=== PATIENT | male | born 1945 | race Caucasian/White ===

== ENCOUNTER → 2016-03-22 | Outpatient (CLI) | payer MEDICARE, OTHER ==
--- NOTE | 2016-03-23 08:04 | MRI ---
Study: MRI of the brain. Indication: PARKINSONS DISEASE Technique: Multiplanar, multi sequence MRI of the brain obtained with and without intravenous contrast. Comparison: April 03, 2012. Findings: No MRI evidence of acute ischemia, acute hemorrhage, mass, mass effect, midline shift, or extra-axial fluid collection. No pathologic enhancement. Mild to moderate global symmetric parenchymal volume loss noted and appears stable to the prior examination. No asymmetric volume loss of the basal ganglia or brainstem. Ventricles are normal in configuration without hydrocephalus. Midline structures are intact. Scattered mild paranasal sinus mucosal disease. Mastoid air cells are adequately aerated. Osseous structures and soft tissues demonstrate normal signal characteristics. Impression: 1. No MRI evidence of acute intracranial abnormality. 2. Stable mild to moderate global symmetric parenchymal volume loss. Electronically signed by: Andrés Hobson MD 03/23/2016 08:03
== END ==
LOC: MRI 13:47
DX: G20 Parkinson's disease (principal)

== ENCOUNTER → 2016-05-18 | Outpatient (CLI) | payer OTHER | END | disposition home or self-care (01) | LOC: RESP 14:02 | PROVIDERS: ATTEND Internal Medicine Cardiovascular Disease | DX: I48.0 Paroxysmal atrial fibrillation (principal); R00.1 Bradycardia, unspecified ==

== ENCOUNTER 2016-05-31 13:22 | Emergency (ER) | payer OTHER ==
[2016-05-31] MEDS ORDERED: ASPIRIN (CHEWABLE) 81 MG TAB PO ONE (13:26)
[2016-05-31] MEDS ORDERED: NITROGLYCERIN 0.4 MG 25 EA TAB SL ONE (13:26)
--- NOTE | 2016-05-31 13:31 | ED.PDOC ---
History of Present Illness - General Chief Complaint: Chest Pain/NC Stated Complaint: chest pain Time Seen by Provider: 05/31/16 13:25 Source: patient, RN notes reviewed, Vital Signs reviewed, family Exam Limitations: no limitations - History of Present Illness Initial Comments: Patient reports L sided substernal chest pain for 2 days. Fairly constant. Worsens with deep breath. Reports the pain is sharp but is associated with nausea and diaphoresis. Unsure if he has been SOB as he has just been sitting in his recliner for 2 days. Reports pain is 7/10. Recently saw Histology Manager and is currently on a halter monitor for intermittent a.fib. Timing/Duration: days - 2 Severity/Quality: moderate - 7/10, sharp Location: substernal Chest Pain Radiation: no radiation Activities at Onset: none Prior Chest Pain/Cardiac Workup: cardiac cath - has had one coronary stent placed in the past, echocardiography - Recently @ cardiology office. reports EKG at recent visit was normal. Improving Factors: nothing Worsening Factors: nothing Nitro Today/Relief: no nitro taken today Aspirin Treatment Today: 81 mg x 1 Associated Symptoms: diaphoresis, nausea/vomiting Allergies/Adverse Reactions: Allergies NO KNOWN ALLERGY Allergy (Verified 11/23/13 18:34) Home Medications: Ambulatory Orders Aripiprazole [Abilify] 2 mg PO HS 03/14/12 Levothyroxine Sodium [Synthroid] 0.075 mg PO 0700 03/14/12 Tamsulosin [Flomax] 0.4 mg PO DAILY 03/14/12 Vilazodone HCl [Viibryd] 40 mg PO DAILY 03/14/12 Zolpidem Tartrate [Ambien] 10 mg PO HS PRN 03/14/12 Aspirin [Aspirin EC] 81 mg PO DAILY 11/23/13 Lidocaine 5% Patch [Lidoderm Patch] 1 applic TOP Q12HRS #5 patch 11/23/13 Simvastatin 20 mg PO BEDTIME 11/23/13 Review of Systems - Review of Systems Constitutional: States: diaphoresis, malaise. Denies: chills EENTM: States: no symptoms reported Respiratory: States: no symptoms reported. Denies: cough, short of breath Cardiology: States: see HPI, chest pain. Denies: edema, palpitations, syncope Gastrointestinal/Abdominal: States: nausea, vomiting. Denies: abdominal pain Genitourinary: States: no symptoms reported Musculoskeletal: States: no symptoms reported Skin: States: no symptoms reported Neurological: States: no symptoms reported. Denies: headache Endocrine: States: no symptoms reported Hematologic/Lymphatic: States: no symptoms reported Past Medical History (General) - Patient Medical History Hx Seizures: No Hx Stroke: No Hx Dementia: No Hx Asthma: No Hx of COPD: No Hx Cardiac Disorders: Yes - dyslipidemia, left vent blockage 15% Hx Congestive Heart Failure: No Hx Pacemaker: No Hx Hypertension: No Hx Thyroid Disease: Yes Hx Diabetes: No Hx Gastroesophageal Reflux: No Hx Renal Disease: No Hx Cancer: No Hx of HIV: No Hx Hepatitis C: No Hx MRSA: No - Vaccination History Hx Tetanus, Diphtheria Vaccination: Yes Hx Influenza Vaccination: Yes Hx Pneumococcal Vaccination: Yes - 2012 - Social History Hx Tobacco Use: No Hx Chewing Tobacco Use: No Hx Alcohol Use: Yes - vodka and OJ 3 x week Hx Substance Use: No Hx Substance Use Treatment: No Hx Depression: Yes Hx Physical Abuse: No Hx Emotional Abuse: No Hx Suspected Abuse: No - Female History Patient : No Family Medical History - Family History Mother Family History: Unknown Physical Exam - Physical Exam General Appearance: Alert, Comfortable, No apparent distress, Well Developed, Well Groomed, Well Hydrated, Well Nourished Neck: non-tender, full range of motion, supple, normal inspection Respiratory: chest non-tender, lungs clear, no respiratory distress, no accessory muscle use, decreased breath sounds - bilateral bases Cardiovascular/Chest: normal peripheral pulses, no edema, no JVD, no murmur, irregularly irregular Peripheral Pulses: radial,right: 2+, radial,left: 2+, posterior tibialis,right: 2+, posterior tibialis,left: 2+ Gastrointestinal/Abdominal: normal bowel sounds, non tender, soft, no organomegaly, no pulsatile mass Extremity: normal range of motion, non-tender, normal inspection, no pedal edema Neurologic: no motor/sensory deficits, alert, normal mood/affect, oriented x 3 Skin Exam: normal color, warm/dry Comments: Vital Signs - 24 hr 05/31/16 13:30 Temperature 97 F L Pulse Rate [ 101 H Right Radial] Respiratory 18 Rate Blood Pressure 145/67 [Left Arm] O2 Sat by Pulse 97 Oximetry Progress - Progress Progress: 05/31/16 13:37 Gave 324mg Aspirin and SLNTG X 1. BP dropped to 94/66 and had no change in his pain. Will try a small dose of Morphine. 05/31/16 14:57 Patient with mildly elevated Troponin of 0.07, elevated D-Dimer and CTA of chest which suggests mediatinitis/pericarditis, will transfer to [facility] in [place] as this is where his Histology Manager, Dr. Ahn practices. 05/31/16 15:45 Waiting on bed @ [facility] - Dr. Ahn wants admit to hospitalist and will consult. Will draw another set of cardiac enzymes while we are waiting. 05/31/16 18:[address] Araiza who accepted patient in transfer. - Results/Orders Results/Orders: Laboratory Tests 05/31/16 13:30 WBC 7.9 RBC 4.82 Hgb 14.7 Hct 43.9 MCV 91.0 MCH 30.5 MCHC 33.5 RDW 14.7 H Plt Count 160 MPV 9.4 Absolute Neuts (auto) 5.30 Absolute Lymphs (auto) 0.90 L Absolute Monos (auto) 1.60 H Absolute Eos (auto) 0.00 Absolute Basos (auto) 0.00 Neutrophils % 67.1 Lymphocytes % 12.0 L Monocytes % 19.9 H Eosinophils % 0.5 L Basophils % 0.5 D-Dimer, Quantitative 544 H* Sodium 138 Potassium 3.4 L Chloride 103 Carbon Dioxide 26 Anion Gap 12.4 BUN 16 Creatinine 1.26 BUN/Creatinine Ratio 12.7 Random Glucose 119 H Serum Osmolality 278.0 Calcium 8.9 Total Bilirubin 3.7 H* AST 20 ALT < 8 L Alkaline Phosphatase 52 Creatine Kinase 28 L CK-MB (CK-2) 0.8 CK-MB (CK-2) % Not Reportable Troponin I 0.07 H* B-Natriuretic Peptide 194.0 H Serum Total Protein 7.0 Albumin 3.8 Globulin 3.2 Albumin/Globulin Ratio 1.2 - EKG/XRAY/CT EKG: Atrial, Fibrillation, no ST T wave changes, Changed from - 2013 XRAY: chest - Pulm congestion, pos. L effusion CT Ordered: Yes - Chest: suggests Mediastinitis/Pericarditis Departure - Departure Clinical Impression: Elevated troponin level Chest pain Qualifiers: Chest pain type: chest pain on breathing Qualifier Code: (R07.1) Chest pain on breathing Atrial fibrillation Qualifiers: Atrial fibrillation type: persistent Qualifier Code: (I48.1) Persistent atrial fibrillation Pericarditis Qualifiers: Pericarditis type: unspecified type Chronicity: acute Qualifier Code: (I30.9) Acute pericarditis, unspecified Time of Disposition: 18:47 Disposition: Transfer to Hospital Condition: Fair Home Medications: Ambulatory Orders Aripiprazole [Abilify] 2 mg PO HS 03/14/12 Levothyroxine Sodium [Synthroid] 0.075 mg PO 0700 03/14/12 Tamsulosin [Flomax] 0.4 mg PO DAILY 03/14/12 Vilazodone HCl [Viibryd] 40 mg PO DAILY 03/14/12 Zolpidem Tartrate [Ambien] 10 mg PO HS PRN 03/14/12 Aspirin [Aspirin EC] 81 mg PO DAILY 11/23/13 Lidocaine 5% Patch [Lidoderm Patch] 1 applic TOP Q12HRS #5 patch 11/23/13 Simvastatin 20 mg PO BEDTIME 11/23/13 Transfer to Outside Facility - Transfer Information Accepting Provider:: Dr. 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
[2016-05-31] MEDS ORDERED: MORPHINE SULFATE INJ 10 MG/ML VIAL IV ONE (13:36)
--- NOTE | 2016-05-31 14:00 | RAD ---
EXAM DESCRIPTION: Chest,1 View CLINICAL HISTORY: 70 years Male, chest pain COMPARISON: 11/23/2013 IMPRESSION: The heart is enlarged with central pulmonary vascular congestion. Surgical clips along the superior margin of the aortic arch/superior mediastinum. Bibasilar interstitial opacities are present, with more patchy left basilar airspace consolidation. Associated moderate left pleural effusion. The findings may be secondary to CHF, but pneumonia is not excluded in the left lung base. Recommend follow-up to confirm resolution. No pneumothorax. No acute osseous abnormality. Electronically signed by: Pedrito Soria MD 05/31/2016 1:59 PM CDT
--- NOTE | 2016-05-31 14:49 | CT ---
EXAM DESCRIPTION: CTA Chest CLINICAL HISTORY: CP with elevated D-Dimer COMPARISON: None. TECHNIQUE: Transaxial images were obtained during rapid ejector demonstration of intravenous contrast media. Multiplanar reconstruction was performed. MIP reconstruction was also performed. FINDINGS: The thyroid is normal. No pathologic axillary adenopathy is observed. No adrenal masses are detected. Small left pleural effusion is noted. Degenerative changes are seen in the thoracic spine. No aortic abnormality is seen. No evidence for pulmonary embolus is seen. The exam does reveal increased density in the mediastinum and evidence of some enhancement of the mediastinum and thickening and enhancement of the pericardium. Some coronary artery calcification is also noted. IMPRESSION: 1. No evidence of pulmonary embolus is seen. 2. Mild by basilar atelectatic type infiltrate is observed slightly more pronounced on the left. 3. Increased density is observed in the mediastinum and there is some enhancement in the mediastinum and in the pericardium suggesting mediastinitis/pericarditis Electronically signed by: Maico Brewer MD 05/31/2016 2:48 PM CDT
[2016-05-31 19:16] VITALS: TEMP 98
[2016-05-31 20:48] VITALS: O2SAT 94
[2016-05-31 22:16] VITALS: BP 118/74
== END 2016-05-31 22:16 | disposition short-term general hospital (02) ==
LOC: ER 13:22
DX: R07.1 Chest pain on breathing (principal); I48.1 Persistent atrial fibrillation; I30.9 Acute pericarditis, unspecified; E78.5 Hyperlipidemia, unspecified; R79.89 Other specified abnormal findings of blood chemistry; E07.9 Disorder of thyroid, unspecified; Z98.61 Coronary angioplasty status; Z79.899 Other long term (current) drug therapy
CPT/HCPCS: 36415; 71010; 71275; 80053; 82550; 82553; 83880; 84484; 85025; 85379; 93005; J2270

== ENCOUNTER 2016-12-07 15:53 | Emergency (ER) | payer OTHER ==
[2016-12-07] MEDS ORDERED: SODIUM CHLORIDE 0.9% (FLUSH) 10 ML SYG IV PRN (16:26)
[2016-12-07] MEDS ORDERED: MORPHINE SULFATE INJ 10 MG/ML VIAL IV ONE (16:32)
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
--- NOTE | 2016-12-07 17:02 | CT ---
EXAM DESCRIPTION: Head. CT head without contrast. CLINICAL HISTORY: AMS, BLE WEAKNESS, [place], H/O AFIB. COMPARISON: MRI brain 03/22/2016. CT head 03/14/2012 TECHNIQUE: Multiple axial images of the head without contrast. Multiplanar reformatted images. This exam was performed according to our departmental dose-optimization program, which includes automated exposure control, adjustment of the mA and/or kV according to patient size and/or use of iterative reconstruction technique. FINDINGS: There is no CT evidence of intracranial hemorrhage, mass effect, or large territory infarction. Moderate generalized volume loss is present. Moderate patchy supratentorial white matter hypodensities. There are no abnormal extra-axial fluid collections. Calcific plaque in the visualized arteries. There is no acute calvarial defect. Operative changes in the right maxillary sinus with mucosal thickening in the ethmoid air cells. The mastoid air cells are clear. IMPRESSION: 1. No CT evidence of an acute intracranial abnormality. If there is concern for an acute or subacute infarct, consider follow-up MRI. 2. Senescent changes. Electronically signed by: Pedrito Soria MD 12/07/2016 5:01 PM CDT
--- NOTE | 2016-12-07 17:10 | RAD ---
EXAM DESCRIPTION: Chest,1 View CLINICAL HISTORY: ACUTE AMS, H/O CARDIAC STENT, H/O AFIB. COMPARISON: May 31, 2016 FINDINGS: Cardiac silhouette is within normal limits. Blunted left costophrenic angle is unchanged compared with the prior exam. Linear opacities in the left lower lung are also unchanged may represent scar. EKG leads project over the chest. Aorta is tortuous. There is no focal parenchymal disease. There is no acute osseous process visualized. IMPRESSION: Stable examination. No evidence of acute cardiopulmonary disease. Electronically signed by: Yves Elizondo MD 12/07/2016 5:09 PM CDT
[2016-12-07 19:25] VITALS: BP 128/87; TEMP 98.2; O2SAT 98
== END 2016-12-07 18:30 | disposition home or self-care (01) ==
LOC: ER 15:53
DX: R41.82 Altered mental status, unspecified (principal); R42 Dizziness and giddiness; R51 Headache; M62.81 Muscle weakness (generalized); E87.5 Hyperkalemia; E07.9 Disorder of thyroid, unspecified; Z79.82 Long term (current) use of aspirin; Z79.899 Other long term (current) drug therapy
CPT/HCPCS: 36416; 70450; 71010; 80053; 82550; 82553; 82948; 84484; 85025; 85610; 85730; J2270

== ENCOUNTER 2018-01-18 19:33 | Emergency (ER) | payer OTHER ==
--- NOTE | 2018-01-18 20:06 | ED.PDOC ---
History of Present Illness - General Chief Complaint: Cardiovascular Problem Stated Complaint: CHF Sx and A-fib Time Seen by Provider: 01/18/18 20:01 Source: patient Exam Limitations: no limitations - History of Present Illness Initial Comments: HE WENT TO THE CLINIC TO SEE HIS DRDarya BECAUSE HE WANTED A SECOND OPINION. EVIDENTLY HE HAS SUFFERED OF EDEMA OF THE LOWER LEGS FOR OVER A YEAR. HE HAS A DECORATING MACHINE TENDER IN [place]-DR. RICE WHO HAS SEEN HIM FOR ATRIAL FIBRILLATION AND AT SOME POINT CARDIOVERTED HIM. HIS DECORATING MACHINE TENDER HAS ALSO SEEN HIM FOR THE EDEMA OF THE LOWER LEGS AND TOLD HIM THAT IT WAS NOT HIS HEART. NOW THE SWELLING IS WORSE. HE ALSO VOICES HAVE EXERTIONAL DYSPNEA. DENIES ANY CHEST PAIN. Timing/Duration: other - OVER ONE YEAR Severity: moderate Associated Symptoms: shortness of breath, weakness Allergies/Adverse Reactions: Allergies NO KNOWN ALLERGY Allergy (Verified 01/18/18 19:53) Home Medications: Ambulatory Orders Levothyroxine Sodium [Synthroid] 0.15 mg PO 0700 03/14/12 Tamsulosin [Flomax] 0.4 mg PO DAILY 03/14/12 Vilazodone HCl [Viibryd] 40 mg PO DAILY 03/14/12 Zolpidem Tartrate [Ambien] 10 mg PO HS PRN 03/14/12 Apixaban [Eliquis] 5 mg PO BID 12/08/16 Atorvastatin Calcium [Lipitor] 20 mg PO DAILY 12/08/16 Carbidopa/Levodopa 25/100 [Sinemet 25/100] 1.5 ea PO TID 12/08/16 Metoprolol Succinate [Metoprolol Succinate ER] 12.5 mg PO DAILY 12/08/16 Primidone [Mysoline] 50 mg PO TID 12/08/16 Ticagrelor [Brilinta] 90 mg PO BID 12/08/16 Cefdinir 300 mg PO BID #20 capsule 01/18/18 Furosemide [Lasix] 20 mg PO DAILY #10 tab 01/18/18 Potassium Chloride Microencaps [Potassium Chloride Cr] 10 meq PO DAILY #10 tab 01/18/18 Review of Systems - Review of Systems Constitutional: States: no symptoms reported EENTM: States: no symptoms reported Respiratory: States: cough, orthopnea, short of breath Cardiology: States: edema Gastrointestinal/Abdominal: States: no symptoms reported Genitourinary: States: no symptoms reported Musculoskeletal: States: no symptoms reported Skin: States: no symptoms reported Neurological: States: no symptoms reported Endocrine: States: no symptoms reported Hematologic/Lymphatic: States: no symptoms reported Past Medical History (General) - Patient Medical History Hx Seizures: No Hx Stroke: No Hx Dementia: No Hx Asthma: No Hx of COPD: No Hx Cardiac Disorders: Yes - dyslipidemia, left vent blockage 15%, stent, A-Fib, cardiac ablasion, CAD Hx Congestive Heart Failure: Yes Hx Pacemaker: No Hx Hypertension: No Hx Thyroid Disease: Yes Hx Diabetes: No Hx Gastroesophageal Reflux: No Hx Renal Disease: No Hx Cancer: No Hx of HIV: No Hx Hepatitis C: No Hx MRSA: No - Vaccination History Hx Tetanus, Diphtheria Vaccination: Yes Hx Influenza Vaccination: Yes Hx Pneumococcal Vaccination: Yes - 2012 - Social History Hx Tobacco Use: No Hx Chewing Tobacco Use: No Hx Alcohol Use: Yes - vodka and OJ 3 x week Hx Substance Use: No Hx Substance Use Treatment: No Hx Depression: Yes Hx Physical Abuse: No Hx Emotional Abuse: No Hx Suspected Abuse: No - Female History Patient : No Family Medical History - Family History Mother Family History: Unknown Physical Exam - Physical Exam General Appearance: Alert, No apparent distress, Well Developed, Well Groomed, Well Hydrated Eyes, Ears, Nose, Throat Exam: PERRL/EOMI, normal ENT inspection, TMs normal, pharynx normal Neck: non-tender, full range of motion, supple, normal inspection Respiratory: chest non-tender, lungs clear, normal breath sounds, no respiratory distress, no accessory muscle use Cardiovascular/Chest: normal peripheral pulses, regular rate, rhythm, other - 3 + EDEMA OF BILATERAL LOWER LEGS Peripheral Pulses: radial,right: 2+, radial,left: 2+ Gastrointestinal/Abdominal: normal bowel sounds, non tender, soft, no organomegaly, no pulsatile mass Rectal Exam: deferred Extremity: pedal edema Neurologic: clinical data management manager II-XII nml as tested, no motor/sensory deficits, alert, normal mood/affect, oriented x 3 Skin Exam: normal color Lymphatic: no adenopathy Progress - Progress Progress: 01/18/18 21:35 01/18/18 19:45 EKG STAT 01/18/18 20:15 EKG STAT Laboratory Results - last 24 hr 01/18/18 01/18/1818 20:13 20:13 20:13 WBC 4.6 L RBC 4.01 L Hgb 12.2 L Hct 37.2 L MCV 92.8 MCH 30.4 MCHC 32.7 L RDW 16.0 H Plt Count 216 MPV 8.1 Absolute Neuts (auto) 3.10 Absolute Lymphs (auto) 0.60 L Absolute Monos (auto) 0.50 Absolute Eos (auto) 0.30 Absolute Basos (auto) 0.00 Neutrophils % 67.2 Lymphocytes % 13.9 L Monocytes % 11.5 H Eosinophils % 6.4 H Basophils % 1.0 D-Dimer, Quantitative Sodium 138 Potassium 3.5 L Chloride 104 Carbon Dioxide 25 Anion Gap 12.5 BUN 12 Creatinine 0.78 BUN/Creatinine Ratio 15.4 Random Glucose 83 Serum Osmolality 274.6 L Calcium 8.9 Total Bilirubin 2.0 H AST 42 ALT < 8 L Alkaline Phosphatase 190 H Troponin I < 0.02 B-Natriuretic Peptide 99.0 Serum Total Protein 7.3 Albumin 3.9 Globulin 3.4 Albumin/Globulin Ratio 1.1 01/18/18 20:13 WBC RBC Hgb Hct MCV MCH MCHC RDW Plt Count MPV Absolute Neuts (auto) Absolute Lymphs (auto) Absolute Monos (auto) Absolute Eos (auto) Absolute Basos (auto) Neutrophils % Lymphocytes % Monocytes % Eosinophils % Basophils % D-Dimer, Quantitative 0.19 Sodium Potassium Chloride Carbon Dioxide Anion Gap BUN Creatinine BUN/Creatinine Ratio Random Glucose Serum Osmolality Calcium Total Bilirubin AST ALT Alkaline Phosphatase Troponin I B-Natriuretic Peptide Serum Total Protein Albumin Globulin Albumin/Globulin Ratio - Results/Orders Results/Orders: EKG: HR OF 86, ID INTERVAL OF 90, QRS OF 90, QTC OF 481, AXIS OF 52. IMPRESSION: SINUS RHYTHM, PROLONGATION OF THE QT INTERVAL. CXR: CONCERNING FOR A LLL PNEUMONIA Departure - Departure Clinical Impression: Venous hypertension of both lower extremities Pneumonia Qualifiers: Pneumonia type: due to unspecified organism Laterality: left Lung location: lower lobe of lung Qualified Code(s): J18.1 - Lobar pneumonia, unspecified organism Time of Disposition: 21:47 Disposition: Discharge to Home or Self Care Condition: Fair Departure Forms: ED Discharge - Pt. Copy, Patient Portal Self Enrollment Instructions: Pneumonia in Adults Diet: resume usual diet Activity: as per physical therapy Referrals: Maico Small III, MD [Active Staff] - 1-2 Weeks Prescriptions: Cefdinir 300 mg PO BID #20 capsule Furosemide [Lasix] 20 mg PO DAILY #10 tab Potassium Chloride Microencaps [Potassium Chloride Cr] 10 meq PO DAILY #10 tab Home Medications: Ambulatory Orders Levothyroxine Sodium [Synthroid] 0.15 mg PO 0700 03/14/12 Tamsulosin [Flomax] 0.4 mg PO DAILY 03/14/12 Vilazodone HCl [Viibryd] 40 mg PO DAILY 03/14/12 Zolpidem Tartrate [Ambien] 10 mg PO HS PRN 03/14/12 Apixaban [Eliquis] 5 mg PO BID 12/08/16 Atorvastatin Calcium [Lipitor] 20 mg PO DAILY 12/08/16 Carbidopa/Levodopa 25/100 [Sinemet 25/100] 1.5 ea PO TID 12/08/16 Metoprolol Succinate [Metoprolol Succinate ER] 12.5 mg PO DAILY 12/08/16 Primidone [Mysoline] 50 mg PO TID 12/08/16 Ticagrelor [Brilinta] 90 mg PO BID 12/08/16 Cefdinir 300 mg PO BID #20 capsule 01/18/18 Furosemide [Lasix] 20 mg PO DAILY #10 tab 01/18/18 Potassium Chloride Microencaps [Potassium Chloride Cr] 10 meq PO DAILY #10 tab 01/18/18
--- NOTE | 2018-01-18 20:18 | RAD ---
EXAM DESCRIPTION: Chest,1 View CLINICAL HISTORY: 72 years Male sob COMPARISON: 12/07/2016 FINDINGS: Cardiac enlargement. There is infiltrate in the left lower lobe with small left effusion concerning for pneumonia. Small amount of patchy atelectasis or infiltrate in the right lung base. No pneumothorax. Scattered calcification in aorta. IMPRESSION: Findings concerning for left lower lobe pneumonia with possible parapneumonic effusion Electronically signed by: Rajani Daigle MD 01/18/2018 8:17 PM WAISTLINE [employer]OCK[employer]
[2018-01-18] MEDS ORDERED: traMADol HCL 50 MG TAB PO ONE (20:46)
[2018-01-18] MEDS ORDERED: cefTRIAXone SODIUM 1 GM in SODIUM CHL 0.9% 50ML MIN-BAG+ 50 ML IVPB ONE (21:38)
[2018-01-18] MEDS ORDERED: FUROSEMIDE INJ 40 MG/4 ML VIAL IV ONE (21:38)
[2018-01-18] MEDS ORDERED: cefTRIAXone SODIUM 1 GM VIAL ONE (21:46)
[2018-01-18] MEDS ORDERED: SODIUM CHL 0.9% 50ML MIN-BAG+ 50 ML IVPB ONE (21:46)
[2018-01-18 21:50] VITALS: TEMP 97.8
[2018-01-18 22:13] VITALS: BP 140/94; O2SAT 99
== END 2018-01-18 22:40 | disposition home or self-care (01) ==
LOC: ER 19:33
DX: J18.9 Pneumonia, unspecified organism (principal); I87.303 Chronic venous hypertension (idiopathic) without complications of bilateral lower extremity; I25.10 Atherosclerotic heart disease of native coronary artery without angina pectoris; E78.5 Hyperlipidemia, unspecified; I48.91 Unspecified atrial fibrillation; I50.9 Heart failure, unspecified; E07.9 Disorder of thyroid, unspecified; Z95.5 Presence of coronary angioplasty implant and graft; Z79.899 Other long term (current) drug therapy
CPT/HCPCS: 36415; 71045; 80053; 83880; 84484; 85025; 85379; 93005; J0696; J1940; J7050

== ENCOUNTER → 2018-02-15 | Outpatient (CLI) | payer OTHER | LOC: GMAL 17:00 | PROVIDERS: ATTEND Family Medicine | DX: I50.9 Heart failure, unspecified (principal) ==

== ENCOUNTER → 2018-02-22 | Outpatient (CLI) | payer OTHER | LOC: GMAL 17:58 | PROVIDERS: ATTEND Family Medicine | DX: I50.9 Heart failure, unspecified (principal) ==

== ENCOUNTER → 2018-03-27 | Outpatient (CLI) | payer OTHER | LOC: GMAL 14:30 | PROVIDERS: ATTEND Family Medicine | DX: I50.9 Heart failure, unspecified (principal) ==

== ENCOUNTER → 2018-08-04 | Outpatient (CLI) | payer OTHER | LOC: GMAL 10:18 | PROVIDERS: ATTEND Family Medicine | DX: E03.9 Hypothyroidism, unspecified (principal); E78.2 Mixed hyperlipidemia; Z79.899 Other long term (current) drug therapy ==

== ENCOUNTER → 2018-08-18 | Outpatient (CLI) | payer OTHER ==
--- NOTE | 2018-08-18 11:02 | US ---
EXAM DESCRIPTION: Ultrasound of the liver right upper quadrant CLINICAL HISTORY: ELEVATED LFTs COMPARISON: None Available. TECHNIQUE: Right upper quadrant ultrasound was performed. FINDINGS: Pancreas: Visualized portions of the pancreas are unremarkable. Bowel gas obscures some areas. Aorta/inferior vena cava: Not well seen due to overlying bowel gas. Liver: The liver is homogeneous in texture with normal echogenicity of the hepatic parenchyma. No focal liver lesion or intrahepatic bile duct dilatation. No liver surface irregularity. Normal appearance of the portal vein and hepatic veins. Gallbladder: Surgically absent. Common bile duct: Normal caliber measuring 4.0 mm. Right kidney: Renal length is 10.7 cm. Normal cortical echogenicity. Cortical thinning at the upper pole. No hydronephrosis is seen. No renal mass or shadowing calculus. Small cyst in the upper right kidney measures 1.1 cm. Compared to previous study June 09, 2018, the infrarenal aortic aneurysm which measured 3.2 cm is not seen on present study due to overlying bowel gas. Aneurysm of this size should be followed with cross sectional imaging every three years. IMPRESSION: No acute upper abdominal process. Electronically signed by: Terrell Allen MD 08/18/2018 11:00 AM CDT
== END ==
LOC: US 09:09
PROVIDERS: ATTEND Family Medicine
DX: R94.5 Abnormal results of liver function studies (principal)

== ENCOUNTER → 2018-09-14 | Outpatient (CLI) | payer OTHER ==
--- NOTE | 2018-09-14 12:57 | CT ---
EXAM DESCRIPTION: CT Chest without CONTRAST CLINICAL HISTORY: PLEURAL EFFUSION LEFT COMPARISON: May 31, 2016 TECHNIQUE: CT of the chest is performed without intravenous contrast. This exam was performed according to our departmental dose-optimization program, which includes automated exposure control, adjustment of the mA and/or kV according to patient size and/or use of iterative reconstruction technique. FINDINGS: The thyroid gland is unremarkable. No axillary adenopathy. Trace pericardial fluid, stable. Coronary artery and aortic valvular calcifications. Presumed coronary artery stent. Cholecystectomy. Otherwise the visualized upper abdomen is unremarkable. No pneumothorax. Stable appearance of the left chronic pleural thickening/fluid, and interlobular septal thickening and atelectasis. No focal consolidation or suspicious pulmonary nodule. Prominent, not pathologically enlarged lymph nodes are present within the mediastinum, and stable dating back to November 09, 2011 likely indicating a benign etiology. No acute or suspicious osseous abnormality. IMPRESSION: Stable chronic left pleural thickening/fluid and interlobular septal thickening/atelectasis dating back to November 09, 2011. Electronically signed by: Aashish Walsh MD 09/14/2018 12:54 PM CDT
== END ==
LOC: CT 09:37
PROVIDERS: ATTEND Internal Medicine
DX: J90 Pleural effusion, not elsewhere classified (principal)

== ENCOUNTER 2018-09-25 04:41 | Day surgery (SDC) | payer OTHER ==
[2018-09-25] MEDS ORDERED: PROPOFOL 200 MG/20 ML VIAL IV ONE (07:00)
[2018-09-25] MEDS ORDERED: LIDOCAINE 1% 10 ML VIAL INJ ONE (07:00)
[2018-09-25] MEDS ORDERED: KETOROLAC TROMETHAMINE INJ 30 MG/ML VIAL ONE (07:00)
[2018-09-25] MEDS ORDERED: DEXAMETHASONE INJ 10 MG/ML VIAL ONE (07:00)
[2018-09-25] MEDS ORDERED: raNITIdine HCL INJ 25 MG/ML VIAL ONE (07:00)
[2018-09-25] MEDS ORDERED: SODIUM CHLORIDE 0.9% 50 ML VIAL ONE (07:00)
[2018-09-25] MEDS ORDERED: LACTATED RINGERS 1,000 ML ONE (07:03)
[2018-09-25] MEDS ORDERED: SODIUM CHL 0.9% 100ML MINI-BAG 100 ML IVPB ONE (07:04)
[2018-09-25] MEDS ORDERED: ceFAZolin SODIUM 1 GM VIAL ONE (07:04)
[2018-09-25] MEDS ORDERED: BUPIVACAINE 0.25% W/EPI 50 ML VIAL INJ ONE (08:23)
[2018-09-25] MEDS ORDERED: MIDAZOLAM INJ 2 MG/2 ML VIAL ONE (09:19)
[2018-09-25] MEDS ORDERED: HYDROmorphone HCL INJ 2 MG/ML VIAL ONE (09:19)
--- NOTE | 2018-09-25 11:13 | OP ---
DATE OF PROCEDURE: 09/25/18 PREOPERATIVE DIAGNOSIS: 1. Umbilical hernia POSTOPERATIVE DIAGNOSIS: 1. Umbilical hernia. PROCEDURE: 1. Repair of umbilical hernia. SURGEON: Robin Hernandez MD. BOILER HOUSE SUPERVISOR: None. ANESTHESIA: General laryngeal mask anesthesia and local infiltration of 0.25% Marcaine with epinephrine. INDICATION: The patient is a 72-year-old male who has had a mass at his umbilicus that has become increasingly tender. He has undergone cardiac clearance. The patient was brought to the Surgical Suite today for repair of said hernia after the risks, benefits and alternatives to the procedure were discussed and accepted. FINDINGS: The defect was approximately just over 1 cm in width and probably 1.5 cm in length. PROCEDURE: After adequate general laryngeal mask anesthesia was obtained, the patient was prepped and draped in the usual sterile manner in the supine position. A surgical time-out was then taken. At this point, the infraumbilical area was infiltrated with local anesthesia. A curvilinear incision was fashioned and carried down through the subcutaneous tissue to the midline fascia. At the midline fascia, the hernia was dissected free circumferentially. It was then transected at its neck at the level of the fascia. The omentum which was within it was reduced using blunt dissection and electrocautery below the floor of the canal. When this was done, the fascia was repaired transversely with interrupted [id number] sutures of #1 PDS which were placed sequentially and then tightened and tied sequentially. When this was done, hemostasis was noted to be adequate. At this point, the subcutaneous fat was dissected free from the abdominal wall fascia circumferentially. At this point, approximately 6.5 by 5 cm oval-shaped mesh patch was sutured over the repair first with interrupted 2-0 Prolene and interrupted 2-0 Vicryl sutures. When this was done, the wound was irrigated with saline. Hemostasis was noted to be adequate. The umbilicus was then sutured to the fascia and the mesh with a [id number] suture of 2-0 Prolene. The subcutaneous tissues were reapproximated with 3-0 Vicryl sutures. The skin edges were approximated with skin stapler. Sterile pressure dressing was applied. An abdominal binder was applied. The patient was awakened and taken to the Recovery Room in good and stable condition. Estimated blood loss was less than 50 mL. All sponge, needle and instrument counts were correct. #[id number] [facility]
[2018-09-25] MEDS ORDERED: HYDROCOD/APAP 5/325 (ER DISP) #3 TAB PO ONE (11:30)
[2018-09-25] MEDS ORDERED: HYDROcodone 5MG/APAP 325MG 1 EA TAB ONE (11:31)
[2018-09-25 13:01] VITALS: BP 121/78; TEMP 96; O2SAT 96
== END 2018-09-25 12:25 | disposition home or self-care (01) ==
LOC: AMB 04:41
PROVIDERS: ATTEND Surgery
DX: K42.9 Umbilical hernia without obstruction or gangrene (principal); I25.10 Atherosclerotic heart disease of native coronary artery without angina pectoris; Z79.899 Other long term (current) drug therapy

== ENCOUNTER → 2018-12-22 | Outpatient (CLI) | payer OTHER ==
--- NOTE | 2018-12-22 14:24 | CT ---
EXAM DESCRIPTION: Abdomen/Pelvis w/wo Contrast CLINICAL HISTORY: GENERALIZED ABDOMINAL PAIN COMPARISON: January 20, 2009 TECHNIQUE: CT of the abdomen and Pelvis was performed without and with IV contrast including delayed postcontrast images. This exam was performed according to our departmental dose-optimization program, which includes automated exposure control, adjustment of the mA and/or kV according to patient size and/or use of iterative reconstruction technique. FINDINGS: Pre-IV contrast images show pleural thickening in the left lung base versus a tiny left-sided pleural effusion, partially visualized, with interstitial prominence also in the left lung base. Findings are unchanged from 2008. Surgical clips near the gastroesophageal junction with some increased density in the paraesophageal soft tissues suggestive of scarring from previous surgery, less likely inflammation. This is also only partially visualized but stable from a chest CT performed on November 23, 2013. The gallbladder is surgically absent. Tiny calcified splenic granulomata. No left or right-sided renal calculus. Following IV contrast administration, a 3.3 cm fusiform infrarenal abdominal aortic aneurysm is present without acute complication, new from the prior study. 2.0 cm right common iliac artery aneurysm, not included on the prior study but also without acute complication. The liver, spleen, pancreas, adrenals and kidneys are unremarkable except for small right renal cyst. No dilated small bowel loops, small bowel wall thickening or mesenteric inflammation. The bladder is suboptimally distended with Concentric bladder wall thickening at least partially related to suboptimal distention. The prostate is not enlarged. Moderate amount of stool and gas scattered throughout the colon without colonic wall thickening or pericolonic inflammation. No appendicitis. Degenerative changes in the lumbar spine at several levels. Delayed postcontrast images confirm bilateral renal contrast excretion. No bladder filling defect. No hernia or other abdominal wall lesion. IMPRESSION: 3.3 cm fusiform infrarenal abdominal aortic aneurysm, new from January,. Recommend follow-up imaging at three year intervals to document stability. No acute complication. 2.0 cm right common iliac artery aneurysm which can also be evaluated for stability on follow-up imaging. Concentric bladder wall thickening at least partially related to suboptimal distention, correlate with urinalysis to exclude cystitis. Chronic changes in the left lung base likely represent pleural thickening, scarring and/or atelectasis. Postoperative changes adjacent to the distal esophagus and gastroesophageal junction, unchanged from November,. Electronically signed by: Bharath Guan MD 12/22/2018 2:22 PM CDT
== END ==
LOC: CT 07:46
PROVIDERS: ATTEND Family Medicine
DX: I71.4 Abdominal aortic aneurysm, without rupture (principal); I72.3 Aneurysm of iliac artery; R91.8 Other nonspecific abnormal finding of lung field; N32.9 Bladder disorder, unspecified; Z98.890 Other specified postprocedural states

== ENCOUNTER → 2019-06-27 | Outpatient (CLI) | payer OTHER | LOC: GMAL 11:29 | PROVIDERS: ATTEND Family Medicine | DX: E53.8 Deficiency of other specified B group vitamins (principal); E03.9 Hypothyroidism, unspecified; E55.9 Vitamin D deficiency, unspecified; R31.9 Hematuria, unspecified; E78.2 Mixed hyperlipidemia; Z79.899 Other long term (current) drug therapy ==

== ENCOUNTER → 2019-08-03 | Outpatient (CLI) | payer OTHER | LOC: GMAL 12:17 | PROVIDERS: ATTEND Family Medicine | DX: E53.8 Deficiency of other specified B group vitamins (principal); E03.9 Hypothyroidism, unspecified; Z79.899 Other long term (current) drug therapy ==

== ENCOUNTER → 2019-08-21 | Outpatient (CLI) | payer OTHER ==
--- NOTE | 2019-08-22 09:54 | MRI ---
Study: MRI of the Left Knee. Indication: PAIN IN LEFT KNEE Technique: Multiplanar, multi sequence MRI of the left knee was obtained without intravenous contrast. Comparison: None Findings: ACL, PCL, MCL, and lateral collateral ligament complex intact. Scattered degenerative signal change medial meniscus and lateral meniscus with subtle undersurface fraying posterior horn medial meniscus with free edge fraying body lateral meniscus. Areas of grade 2 and mild grade 3 chondral thinning throughout the medial and to a lesser extent lateral knee compartments with subtle grade 4 chondral fissuring and subchondral marrow change at the lateral margin medial femoral condyle. Low-grade tendinosis quadriceps tendon insertion. Patellar tendon intact. Patella normally located. Subtle grade 3/4 chondral fissuring at the medial patellar facet. Small knee effusion. No acute fracture. Tiny Schaffer's cyst, partially ruptured. Impression: Subtle undersurface fraying posterior horn medial meniscus as well as free edge fraying body lateral meniscus. Grade 2 and mild grade 3 chondral thinning medial and lateral knee compartments but with minimal grade 4 chondral fissuring lateral margin medial femoral condyle. Low-grade tendinosis quadriceps insertion. Subtle grade 3/4 chondral fissuring medial patellar facet. Small knee effusion. Electronically signed by: Andrés Hobson MD 08/22/2019 9:52 AM CDT
== END ==
LOC: MRI 12:46
PROVIDERS: ATTEND Family Medicine
DX: M23.322 Other meniscus derangements, posterior horn of medial meniscus, left knee (principal); M94.262 Chondromalacia, left knee; M25.462 Effusion, left knee

== ENCOUNTER → 2019-09-03 | Outpatient (CLI) | payer OTHER | LOC: GMAL 10:49 | PROVIDERS: ATTEND Family Medicine | DX: E53.9 Vitamin B deficiency, unspecified (principal); E03.9 Hypothyroidism, unspecified; Z79.899 Other long term (current) drug therapy ==

== ENCOUNTER 2019-11-25 17:24 | Emergency (ER) | payer OTHER ==
[2019-11-25 17:38] VITALS: TEMP 98.2; O2SAT 94
[2019-11-25] MEDS ORDERED: LIDOCAINE 1% W/ EPINEPHRINE 20 ML VIAL INJ ONE ×2 (17:39)
--- NOTE | 2019-11-25 17:42 | ED.PDOC ---
History of Present Illness - General Chief Complaint: Laceration Stated Complaint: laceration to left thumb Time Seen by Provider: 11/25/19 17:36 Source: patient Exam Limitations: no limitations - History of Present Illness Initial Comments: Patient presents to ED for left thumb laceration that occurred just prior to arrival. States he was cleaning a tire and the hose slipped and cut his dorsal left thumb. Bleeding was controlled with pressure. He irrigated with water prior to arrival. States his last tetanus shot was 2 years ago. Denies any other injuries. Allergies/Adverse Reactions: Allergies NO KNOWN ALLERGY Allergy (Verified 01/18/18 19:53) Home Medications: Ambulatory Orders Levothyroxine Sodium [Synthroid] 0.15 mg PO 0700 03/14/12 Vilazodone HCl [Viibryd] 40 mg PO DAILY 03/14/12 Zolpidem Tartrate [Ambien] 10 mg PO HS PRN 03/14/12 Brexpiprazole [Rexulti] 1 mg PO DAILY 09/21/18 Coenzyme Q10 (Ubidecarenone) [Coq-10] 100 mg PO DAILY 09/21/18 Sacubitril-Valsartan [Entresto 49-51 mg] 0.5 tab PO BID 09/21/18 Suvorexant [Belsomra] 20 mg PO BEDTIME 09/21/18 Umeclidinium-Vilanterol [Anoro Ellipta 62.5-25 Mcg/INH] 1 puff IN DAILY 09/21/18 Review of Systems - Review of Systems Constitutional: Denies: chills, fever Respiratory: Denies: cough, short of breath Skin: States: see HPI All other Systems: Reviewed and Negative Past Medical History (General) - Patient Medical History Hx Seizures: No Hx Stroke: No Hx Dementia: No Hx Asthma: No Hx of COPD: No Hx Cardiac Disorders: Yes Hx Congestive Heart Failure: No Hx Pacemaker: No Hx Hypertension: No Hx Thyroid Disease: Yes Hx Diabetes: No Hx Gastroesophageal Reflux: No Hx Renal Disease: No Hx Cancer: No Hx of HIV: No Hx Hepatitis C: No Hx MRSA: No Surgical History: cholecystectomy - Vaccination History Hx Tetanus, Diphtheria Vaccination: Yes - UTD Hx Influenza Vaccination: Yes - 2019 Hx Pneumococcal Vaccination: Yes - Social History Hx Tobacco Use: No Hx Chewing Tobacco Use: No Hx Alcohol Use: Yes - vodka and OJ 3 x week Hx Substance Use: No Hx Substance Use Treatment: No Hx Depression: Yes Hx Physical Abuse: No Hx Emotional Abuse: No Hx Suspected Abuse: No - Female History Patient : No Family Medical History - Family History Mother Family History: Unknown Physical Exam - Physical Exam General Appearance: Alert, Comfortable, No apparent distress Respiratory: lungs clear, normal breath sounds Cardiovascular/Chest: normal peripheral pulses, regular rate, rhythm Extremity: normal range of motion, non-tender Skin Exam: other - There is a 1 cm superficial laceration to dorsal left thumb between MCP and IP joints. No active bleeding. Has 5/5 flexion and extension strength. no bony tenderness Progress - Progress Progress: 11/25/19 17:56 Pt has left thumb laceration. no bony tenderness. Has FROM in LUE w/o pain. i rrigated extensively and approximated with sutures. Wound care instructions given. Suture removal in 10-12 days. Procedures - Laceration/Wound Repair Left Dorsal Finger Wound Length (cm): 1 Wound's Depth, Shape: superficial, linear Wound Explored: clean Irrigated w/ Saline (cc's): 250 Anesthesia: Lidocaine w/ Epi Wound Repaired With: sutures Suture Size/Type: 4:0 Number of Sutures: 2 Layer Closure?: No Sterile Dressing Applied?: Yes Progress: dorsal left thumb laceration Departure - Departure Clinical Impression: Laceration of thumb Qualifiers: Encounter type: initial encounter Damage to nail status: without damage Foreign body presence: without foreign body Laterality: left Qualified Code(s): S61.012A - Laceration without foreign body of left thumb without damage to nail, initial encounter Time of Disposition: 17:55 Disposition: Discharge to Home or Self Care Condition: Good Departure Forms: ED Discharge - Pt. Copy, Patient Portal Self Enrollment Instructions: DI for Laceration Repair, Laceration Repair With Stitches (DC) Diet: resume usual diet Activity: increase activity as tolerated Referrals: Maico Small III, MD [Primary Care Provider] - 1-2 Days Home Medications: Ambulatory Orders Levothyroxine Sodium [Synthroid] 0.15 mg PO 0700 03/14/12 Vilazodone HCl [Viibryd] 40 mg PO DAILY 03/14/12 Zolpidem Tartrate [Ambien] 10 mg PO HS PRN 03/14/12 Brexpiprazole [Rexulti] 1 mg PO DAILY 09/21/18 Coenzyme Q10 (Ubidecarenone) [Coq-10] 100 mg PO DAILY 09/21/18 Sacubitril-Valsartan [Entresto 49-51 mg] 0.5 tab PO BID 09/21/18 Suvorexant [Belsomra] 20 mg PO BEDTIME 09/21/18 Umeclidinium-Vilanterol [Anoro Ellipta 62.5-25 Mcg/INH] 1 puff IN DAILY 09/21/18 Additional Instructions: Keep wound clean and dry. You will need to return for suture removal in 10-12 days.
[2019-11-25] MEDS ORDERED: NEOMYCIN-BACITRACIN-POLYMYXIN 0.9 GM UD TOP ONE (17:58)
[2019-11-25 18:03] VITALS: BP 137/92
== END 2019-11-25 18:03 | disposition home or self-care (01) ==
LOC: ER 17:24
DX: S61.012A Laceration without foreign body of left thumb without damage to nail, initial encounter (principal); F32.9 Major depressive disorder, single episode, unspecified; E07.9 Disorder of thyroid, unspecified; I51.9 Heart disease, unspecified; Z79.899 Other long term (current) drug therapy; W45.8XXA Other foreign body or object entering through skin, initial encounter; Y93.89 Activity, other specified; Y92.9 Unspecified place or not applicable

== ENCOUNTER → 2019-12-10 | Outpatient (CLI) | payer OTHER | LOC: GMAL 14:13 | PROVIDERS: ATTEND Family Medicine | DX: E53.8 Deficiency of other specified B group vitamins (principal); E03.9 Hypothyroidism, unspecified; E55.9 Vitamin D deficiency, unspecified; E78.2 Mixed hyperlipidemia; Z79.899 Other long term (current) drug therapy ==

== ENCOUNTER → 2019-12-25 | Outpatient (CLI) | payer OTHER ==
--- NOTE | 2019-12-26 13:18 | MRI ---
EXAM DESCRIPTION: Brain w/o Contrast: MRI. CLINICAL HISTORY: UNSPEC. SYMPTOMS AND SIGNS INVOLVING COGNITIVE FUNCTIONS COMPARISON: MRI scan of the brain without and with gadolinium IV contrast March 2016. TECHNIQUE: Multiplanar, high-field MRI unit, multiple diffusion sequences, multiple conventional sequences without contrast. FINDINGS: No significantly abnormal FLAIR and T2-weighted signal in the periventricular white matter and sub-cortical white matter the white matter appears symmetric.. No hemorrhage, no cerebral edema, no midline shift.. Normal signal in the bilateral basal ganglia. Normal signal in the brainstem and cerebellar hemispheres. No hemorrhage, no cerebral edema, no mass-effect. Concordance of the diffusion and non-diffusion sequences with no diffusion restriction. Cortical sulci, ventricles, and other CSF spaces, and the subdural spaces are minimally prominent for patient's age, stable since the prior study. No effacement or displacement. No midline shift. No extra-axial hemorrhage. Normal flow signal void in the major vessels of the [place], and the venous sinuses. Artifact from the sinus and facial region distorting the T2*gradient axial images in the parasagittal inferior frontal lobes bilaterally. No evidence of hemorrhage. IACs are symmetric bilaterally. No fluid signal in the bilateral mastoid air cells. Normal signal in the bilateral cerebellopontine angles, with no mass effect. Pituitary gland occupies most of the sella. Base of the cerebellar tonsils is at the level of the foramen magnum. Diffuse mucoperiosteal thickening with no air-fluid levels in the paranasal sinuses. The bony calvarium is intact. IMPRESSION: 1. Minimal cortical atrophy is symmetric and stable since the prior study with no evidence of significant cerebral microvascular disease or age-related changes in the periventricular white matter and subcortical white matter. No intra-axial/extra-axial hemorrhage, no mass effect, no midline shift. 2. Normal noncontrast MRI diffusion scan of the brain with no evidence of significant ischemia or subacute or acute infarction. Electronically signed by: Kumar Hernandez MD 12/26/2019 1:17 PM CDT
== END ==
LOC: MRI 10:05
PROVIDERS: ATTEND Family Medicine
DX: R41.9 Unspecified symptoms and signs involving cognitive functions and awareness (principal); G31.9 Degenerative disease of nervous system, unspecified

== ENCOUNTER 2020-01-21 09:35 | Emergency (ER) | payer OTHER ==
[2020-01-21 09:55] VITALS: TEMP 97.6
[2020-01-21] MEDS ORDERED: SODIUM CHLORIDE 0.9% (FLUSH) 10 ML SYG IV PRN (10:00)
--- NOTE | 2020-01-21 10:20 | RAD ---
EXAM DESCRIPTION: Chest,1 View CLINICAL HISTORY: cough and shortness of breath COMPARISON: January 18, 2018 FINDINGS: The cardiac silhouette is at the upper limits of normal size, stable. Bibasilar atelectasis and/or scarring, stable from January,. No new airspace consolidation or pleural effusion. There is no pneumothorax or acute fracture. IMPRESSION: Chronic changes in both lung bases representing subsegmental atelectasis and/or scarring, unchanged from January,. No new abnormality. Electronically signed by: Bharath Guan MD 01/21/2020 10:19 AM [facility]
--- NOTE | 2020-01-21 11:07 | ED.PDOC ---
History of Present Illness - General Chief Complaint: General Stated Complaint: weakness and black diarrhea Time Seen by Provider: 01/21/20 10:00 Source: patient, RN notes reviewed, Vital Signs reviewed Exam Limitations: no limitations - History of Present Illness Initial Comments: Patient is a 74-year-old white male who presents with complaints of generalized fatigue and weakness. Patient started having diarrhea 3 to 4 days ago, black in color with increasing weakness, shortness of breath, chest pain. Chest pain is pressure-like in nature. It is nonradiating. It is intermittent. It is mild in intensity. Weakness is generalized. It is moderate in intensity. It is waxing and waning. Worse pain and weakness with exertion. Better with rest Timing/Duration: other - 3 to 4 days Severity: moderate Improving Factors: rest Worsening Factors: movement Associated Symptoms: chest pain, cough, malaise, shortness of breath, weakness Allergies/Adverse Reactions: Allergies NO KNOWN ALLERGY Allergy (Verified 01/18/18 19:53) Home Medications: Ambulatory Orders Vilazodone HCl [Viibryd] 40 mg PO DAILY 03/14/12 Cyanocobalamin [Vitamin B12] 1,000 mcg PO BID 11/25/19 Levothyroxine Sodium [Euthyrox] 137 mcg PO DAILY 11/25/19 Pramipexole Dihydrochloride [Pramipexole Dihydrochlori] 0.5 mg PO PRN 11/25/19 Tamsulosin [Flomax] 0.4 mg PO QD 11/25/19 Tramadol HCl 50 mg PO PRN 11/25/19 Ondansetron [Ondansetron Odt] 4 mg PO Q6H #12 tab 01/21/20 Review of Systems - Review of Systems Constitutional: States: see HPI, malaise, weakness. Denies: chills, fever EENTM: States: no symptoms reported. Denies: eye pain, blurred vision, double vision Respiratory: States: see HPI, cough, short of breath. Denies: stridor, wheezing Cardiology: States: see HPI, chest pain. Denies: palpitations, syncope Gastrointestinal/Abdominal: States: see HPI, diarrhea. Denies: abdominal pain, nausea, vomiting Genitourinary: States: no symptoms reported. Denies: dysuria, frequency Musculoskeletal: States: no symptoms reported. Denies: back pain, joint pain, neck pain Skin: States: no symptoms reported. Denies: change in color, rash Neurological: States: see HPI, weakness. Denies: headache, numbness, paresthesia, tingling, tremors Endocrine: States: no symptoms reported. Denies: increased hunger, increased thirst, increased urine Hematologic/Lymphatic: States: no symptoms reported. Denies: blood clots, easy bleeding All other Systems: Reviewed and Negative Past Medical History (General) - Patient Medical History Hx Seizures: No Hx Stroke: No Hx Dementia: No Hx Asthma: No Hx of COPD: No Hx Cardiac Disorders: Yes - A-Fib Hx Congestive Heart Failure: No Hx Pacemaker: No Hx Hypertension: No Hx Thyroid Disease: Yes Hx Diabetes: No Hx Gastroesophageal Reflux: No Hx Renal Disease: No Hx Cancer: No Hx of HIV: No Hx Hepatitis C: No Hx MRSA: No Surgical History: pneumothorax, other - Vaccination History Hx Tetanus, Diphtheria Vaccination: Yes Hx Influenza Vaccination: Yes Hx Pneumococcal Vaccination: Yes Immunizations Up to Date: Yes - Social History Hx Tobacco Use: No Hx Chewing Tobacco Use: No Hx Alcohol Use: Yes Hx Substance Use: No Hx Substance Use Treatment: No Hx Depression: Yes Hx Physical Abuse: No Hx Emotional Abuse: No Hx Suspected Abuse: No - Female History Patient is a Female of Child Bearing Age (10 -59 yrs old): No Patient : No Family Medical History - Family History Mother Family History: Unknown Physical Exam - Physical Exam General Appearance: Alert, Anxious, Obvious distress, Well Developed, Well Groomed, Well Hydrated, Well Nourished Eye Exam: bilateral normal Ears, Nose, Throat: hearing grossly normal, normal ENT inspection, normal pharynx Neck: non-tender, full range of motion, supple Respiratory: chest non-tender, lungs clear, normal breath sounds, no respiratory distress, no accessory muscle use Cardiovascular/Chest: normal peripheral pulses, regular rate, rhythm, no edema, no gallop, no JVD, no murmur Peripheral Pulses: radial,right: 2+, radial,left: 2+ Gastrointestinal/Abdominal: normal bowel sounds, non tender, soft, no organomegaly, no pulsatile mass Back Exam: normal inspection, no CVA tenderness, no vertebral tenderness Extremity: normal range of motion, non-tender, normal inspection 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 01/21/20 13:47 Chest x-ray shows only chronic changes. Covid is negative. Labs are relatively unremarkable. He does have a mildly elevated total bilirubin. Patient denies any right upper quadrant pain. Suspect the patient has a viral gastroenteritis as the rectal swab is negative for blood. Plan on discharge home with follow-up with PCP. I discussed this plan of care with the patient he voices understanding and agreement. Juan Antonio Millan M.D. #[id number] - Results/Orders Results/Orders: EKG performed 21 January 2020 at 1002 hrs.: Normal sinus rhythm with sinus arrhythmia at 61 bpm, normal axis deviation, no ST or T wave changes, normal EKG. No comparison EKG available at this time. EXAM DESCRIPTION: Chest,1 View CLINICAL HISTORY: cough and shortness of breath COMPARISON: January 18, 2018 FINDINGS: The cardiac silhouette is at the upper limits of normal size, stable. Bibasilar atelectasis and/or scarring, stable from January,. No new airspace consolidation or pleural effusion. There is no pneumothorax or acute fracture. IMPRESSION: Chronic changes in both lung bases representing subsegmental atelectasis and/or scarring, unchanged from January,. No new abnormality. Electronically signed by: Bharath Guan MD 01/21/2020 10:19 AM 01/21/20 10:00 Sodium Chloride 0.9% (Flush) [Saline Flush Syringe] 3 ml IV PRN PRN 01/21/20 10:01 IV Care:Saline Lock per Protoc QSHIFT Telemetry ONCE Pulse Oximetry Assessment DAILY 01/21/20 10:15 EKG STAT 01/22/20 09:00 Pulse Ox Daily Laboratory Results - last 24 hr 01/21/20 01/21/20 01/21/20 10:01 10:01 12:13 WBC 3.5 L RBC 4.95 Hgb 15.6 Hct 45.1 MCV 91.0 MCH 31.4 H MCHC 34.6 RDW 14.9 H Plt Count 170 MPV 8.5 Absolute Neuts (auto) 2.50 Absolute Lymphs (auto) 0.40 L Absolute Monos (auto) 0.40 Absolute Eos (auto) 0.10 Absolute Basos (auto) 0.00 Neutrophils % 70.4 Lymphocytes % 12.6 L Monocytes % 11.8 H Eosinophils % 4.0 Basophils % 1.2 PT 11.0 H INR 1.11 PTT (SP) 28.1 Sodium 140 Potassium 3.8 Chloride 101 Carbon Dioxide 27 Anion Gap 15.8 BUN 16 Creatinine 1.16 BUN/Creatinine Ratio 13.8 Random Glucose 85 Serum Osmolality 279.8 Calcium 9.1 Magnesium 2.2 Total Bilirubin 2.4 H* Direct Bilirubin 0.4 H Indirect Bilirubin 2.0 H AST 33 ALT 18 Alkaline Phosphatase 128 H Creatine Kinase 88 CK-MB (CK-2) 5.0 H* CK-MB (CK-2) % Not Reportable Troponin I < 0.02 Serum Total Protein 8.4 H Albumin 4.5 Urine Color Urine Appearance Urine pH Ur Specific [place] Urine Protein Urine Glucose (UA) Urine Ketones Urine Blood Urine Nitrite Urine Bilirubin Urine Urobilinogen Ur Leukocyte Esterase Urine RBC Urine WBC Ur Epithelial Cells Amorphous Sediment Urine Bacteria Stool Occult Blood Negative 01/21/20 12:13 WBC RBC Hgb Hct MCV MCH MCHC RDW Plt Count MPV Absolute Neuts (auto) Absolute Lymphs (auto) Absolute Monos (auto) Absolute Eos (auto) Absolute Basos (auto) Neutrophils % Lymphocytes % Monocytes % Eosinophils % Basophils % PT INR PTT (SP) Sodium Potassium Chloride Carbon Dioxide Anion Gap BUN Creatinine BUN/Creatinine Ratio Random Glucose Serum Osmolality Calcium Magnesium Total Bilirubin Direct Bilirubin Indirect Bilirubin AST ALT Alkaline Phosphatase Creatine Kinase CK-MB (CK-2) CK-MB (CK-2) % Troponin I Serum Total Protein Albumin Urine Color Yellow Urine Appearance Clear Urine pH 5.5 Ur Specific [place] 1.010 Urine Protein Negative Urine Glucose (UA) Negative Urine Ketones Negative Urine Blood Small H Urine Nitrite Negative Urine Bilirubin Negative Urine Urobilinogen 0.2 Ur Leukocyte Esterase Negative Urine RBC 0-1 Urine WBC 0 Ur Epithelial Cells 0 Amorphous Sediment 1+ Urine Bacteria 0 Stool Occult Blood Vital Signs 01/21/20 01/21/20 01/21/20 09:50 10:01 11:36 Temperature 97.6 F Pulse Rate [ 65 65 Pulse Ox] Respiratory 18 14 16 Rate Blood Pressure 129/86 145/86 [L Arm] O2 Sat by Pulse 98 96 Oximetry 01/21/20 01/21/20 12:07 13:00 Temperature Pulse Rate [ 65 Pulse Ox] Respiratory 16 14 Rate Blood Pressure 141/90 142/89 [L Arm] O2 Sat by Pulse 96 95 Oximetry Covid: Negative Respiratory panel: Negative Departure - Departure Clinical Impression: Viral gastroenteritis, Malaise and fatigue Time of Disposition: 14:00 Disposition: Discharge to Home or Self Care Condition: Good Departure Forms: ED Discharge - Pt. Copy, Patient Portal Self Enrollment Instructions: Viral Gastroenteritis, Adult (DC) Diet: full liquid diet Activity: increase activity as tolerated Referrals: Maico Small III, MD [Primary Care Provider] - 1-5 Days Prescriptions: Ondansetron [Ondansetron Odt] 4 mg PO Q6H #12 tab Home Medications: Ambulatory Orders Vilazodone HCl [Viibryd] 40 mg PO DAILY 03/14/12 Cyanocobalamin [Vitamin B12] 1,000 mcg PO BID 11/25/19 Levothyroxine Sodium [Euthyrox] 137 mcg PO DAILY 11/25/19 Pramipexole Dihydrochloride [Pramipexole Dihydrochlori] 0.5 mg PO PRN 11/25/19 Tamsulosin [Flomax] 0.4 mg PO QD 11/25/19 Tramadol HCl 50 mg PO PRN 11/25/19 Ondansetron [Ondansetron Odt] 4 mg PO Q6H #12 tab 01/21/20
[2020-01-21 13:05] VITALS: O2SAT 95
[2020-01-21 14:05] VITALS: BP 138/87
== END 2020-01-21 14:05 | disposition home or self-care (01) ==
LOC: ER 09:35
DX: A08.4 Viral intestinal infection, unspecified (principal); R53.83 Other fatigue; R53.81 Other malaise; Z20.828 Contact with and (suspected) exposure to other viral communicable diseases; F32.9 Major depressive disorder, single episode, unspecified; I48.91 Unspecified atrial fibrillation; E07.9 Disorder of thyroid, unspecified; Z79.899 Other long term (current) drug therapy

== ENCOUNTER → 2020-01-28 | Outpatient (CLI) | payer OTHER | LOC: GMAL 10:20 | PROVIDERS: ATTEND Family Medicine | DX: E53.8 Deficiency of other specified B group vitamins (principal); R41.9 Unspecified symptoms and signs involving cognitive functions and awareness; E03.9 Hypothyroidism, unspecified; E72.11 Homocystinuria ==

== ENCOUNTER 2020-02-15 11:54 | Emergency (ER) | payer OTHER ==
[2020-02-15] MEDS ORDERED: SODIUM CHLORIDE 0.9% (FLUSH) 10 ML SYG IV PRN (12:52)
[2020-02-15 13:11] VITALS: TEMP 97.2
--- NOTE | 2020-02-15 14:05 | RAD ---
XR CHEST 1 VIEW HISTORY: 74 years Male chest pain and sob COMPARISON: January 21, 2020. CT chest dated September 14, 2018. CT chest dated November 09, 2011. TECHNIQUE: Single AP view of the chest. FINDINGS: Lungs: Hazy attenuation and interstitial prominence in the left mid to lower lung is similar to prior comparison studies. Blunting of the left costophrenic angle may represent a small left pleural effusion. No pneumothorax observed. Heart/Mediastinum: Cardiomediastinal silhouette is unchanged. Surgical clips again demonstrated within the mediastinum. Bones: No acute abnormality detected. IMPRESSION: Persistent hazy attenuation and interstitial thickening in the left lower lung. Findings favor chronic interstitial edema/scarring. In setting of prior neoplasm, lymphangitic carcinomatosis would be of consideration although relative stability dating back to 2011 would be atypical. Of note, new airspace disease at this location would likely be undetectable by radiographs. Possible small left pleural effusion, also similar to prior exams. Electronically signed by: Kyle Odell MD 02/15/2020 2:03 PM [facility]
--- NOTE | 2020-02-15 14:21 | ED.PDOC ---
History of Present Illness - General Chief Complaint: Chest Pain/[place] Stated Complaint: CP, SOB, dizzy, lightheaded, lethargy Time Seen by Provider: 02/15/20 12:52 Source: patient, RN notes reviewed, Vital Signs reviewed, family - Exam Limitations: no limitations - History of Present Illness Initial Comments: Patient is a 74-year-old white male who presents from his doctor's office with complaints of lethargy, chest pressure, shortness of breath and a heart murmur per his PCPs nurse. Patient states that the shortness of breath is been going on for months and months but it acutely worsened today. Additionally patient complains of some chest pressure this started yesterday. It is constant. It is nonradiating. It is moderate in intensity. Nothing seems to make it better or worse. Timing/Duration: 24 hours Severity: moderate Improving Factors: nothing Worsening Factors: nothing Associated Symptoms: chest pain, malaise, shortness of breath, weakness Allergies/Adverse Reactions: Allergies Donepezil [From Aricept] Allergy (Verified 02/15/20 13:11) Home Medications: Ambulatory Orders Vilazodone HCl [Viibryd] 40 mg PO DAILY 03/14/12 Cyanocobalamin [Vitamin B12] 1,000 mcg PO BID 11/25/19 Levothyroxine Sodium [Euthyrox] 137 mcg PO DAILY 11/25/19 Pramipexole Dihydrochloride [Pramipexole Dihydrochlori] 0.5 mg PO PRN 11/25/19 Tamsulosin [Flomax] 0.4 mg PO QD 11/25/19 Tramadol HCl 50 mg PO PRN 11/25/19 Ondansetron [Ondansetron Odt] 4 mg PO Q6H #12 tab 01/21/20 Review of Systems - Review of Systems Constitutional: States: see HPI, malaise. Denies: chills, fever, weakness EENTM: States: no symptoms reported. Denies: eye pain, blurred vision, double vision Respiratory: States: see HPI, cough, orthopnea, short of breath. Denies: wheezing Cardiology: States: see HPI, chest pain. Denies: palpitations, syncope Gastrointestinal/Abdominal: States: no symptoms reported. Denies: abdominal pain, diarrhea, nausea, vomiting Genitourinary: States: no symptoms reported. Denies: dysuria, frequency Musculoskeletal: States: no symptoms reported. Denies: back pain, joint pain, neck pain Skin: States: no symptoms reported. Denies: change in color, rash Neurological: States: see HPI, weakness. Denies: headache, numbness, tingling, tremors Endocrine: States: no symptoms reported. Denies: increased hunger, increased thirst, increased urine Hematologic/Lymphatic: States: no symptoms reported All other Systems: Reviewed and Negative Past Medical History (General) - Patient Medical History Hx Seizures: No Hx Stroke: No Hx Dementia: No Hx Asthma: No Hx of COPD: No Hx Cardiac Disorders: Yes - stent Hx Congestive Heart Failure: No Hx Pacemaker: No Hx Hypertension: No Hx Thyroid Disease: Yes - hypo Hx Diabetes: No Hx Gastroesophageal Reflux: No Hx Renal Disease: No Hx Cancer: Yes - SC skin Hx of HIV: No Hx Hepatitis C: No Hx MRSA: No Surgical History: cancer surgery, cholecystectomy, coronary bypass surgery, other - Vaccination History Hx Tetanus, Diphtheria Vaccination: Yes Hx Influenza Vaccination: Yes Hx Pneumococcal Vaccination: No - Social History Hx Tobacco Use: No Hx Chewing Tobacco Use: No Hx Alcohol Use: Yes Hx Substance Use: No Hx Substance Use Treatment: No Hx Depression: No Hx Physical Abuse: No Hx Emotional Abuse: No Hx Suspected Abuse: No - Female History Patient is a Female of Child Bearing Age (10 -59 yrs old): No Patient : No Family Medical History - Family History Mother Family History: Unknown Physical Exam - Physical Exam General Appearance: Alert, Anxious, Comfortable, Well Developed, Well Groomed, Well Hydrated, Well Nourished Eye Exam: bilateral normal Ears, Nose, Throat: hearing grossly normal, normal pharynx Neck: non-tender, full range of motion, supple, normal inspection Respiratory: chest non-tender, lungs clear, normal breath sounds, no respiratory distress, no accessory muscle use Cardiovascular/Chest: normal peripheral pulses, regular rate, rhythm, no edema, no gallop, no JVD, no murmur, other - loud opening snap. 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 02/15/20 19:17 Patient has had an extensive work-up here in the emergency department. Patient had a pleurodesis done over 40 years ago for some type of fluid accumulation in the left and right lungs. Work-up today showed that he has elevated D-dimer. The remainder of his labs are relatively unremarkable. Chest x-ray was acutely abnormal. His CTA showed that he had worsening pleural effusion and scarring and concern for cancer as evidenced by inflamed lymph nodes. Long discussion with the and regarding the potential diagnoses and need for emergent follow-up with Dr. Small on Tuesday morning. They voiced understanding and agreement with the plan of care. Plan on discharge home at this time. Juan Antonio Millan M.D. #[id number] - Results/Orders Results/Orders: 02/15/20 12:52 Sodium Chloride 0.9% (Flush) [Saline Flush Syringe] 3 ml IV PRN PRN Pulse Oximetry Assessment DAILY 02/15/20 13:00 EKG STAT 02/15/20 13:40 Echocardiography complete w Stat 02/15/20 17:50 CTA Chest [CT] Stat 02/16/20 09:00 Pulse Ox Daily Laboratory Results - last 24 hr 02/15/20 02/15/20 12:55 12:55 WBC 3.6 L RBC 4.37 L Hgb 13.8 L Hct 40.1 L MCV 91.7 MCH 31.5 H MCHC 34.3 RDW 15.3 H Plt Count 165 MPV 9.0 Absolute Neuts (auto) 3.10 Absolute Lymphs (auto) 0.30 L Absolute Monos (auto) 0.10 L Absolute Eos (auto) 0.10 Absolute Basos (auto) 0.00 Neutrophils % 86.8 H Lymphocytes % 7.0 L Monocytes % 3.0 Eosinophils % 2.2 Basophils % 1.0 PT 11.6 H INR 1.17 H PTT (SP) 27.1 D-Dimer, Quantitative 2250.0 H* Sodium 140 Potassium 4.7 Chloride 105 Carbon Dioxide 26 Anion Gap 13.7 BUN 18 Creatinine 0.98 BUN/Creatinine Ratio 18.4 Random Glucose 97 Serum Osmolality 281.2 Calcium 9.0 Magnesium 2.1 Total Bilirubin 3.2 H* Direct Bilirubin 0.5 H Indirect Bilirubin 2.7 H AST 26 ALT 18 Alkaline Phosphatase 112 Creatine Kinase 77 CK-MB (CK-2) 2.4 CK-MB (CK-2) % Not Reportable Troponin I < 0.02 B-Natriuretic Peptide 74.0 Serum Total Protein 7.8 Albumin 4.1 XR CHEST 1 VIEW HISTORY: 74 years Male chest pain and sob COMPARISON: January 21, 2020. CT chest dated September 14, 2018. CT chest dated November 09, 2011. TECHNIQUE: Single AP view of the chest. FINDINGS: Lungs: Hazy attenuation and interstitial prominence in the left mid to lower lung is similar to prior comparison studies. Blunting of the left costophrenic angle may represent a small left pleural effusion. No pneumothorax observed. Heart/Mediastinum: Cardiomediastinal silhouette is unchanged. Surgical clips again demonstrated within the mediastinum. Bones: No acute abnormality detected. IMPRESSION: Persistent hazy attenuation and interstitial thickening in the left lower lung. Findings favor chronic interstitial edema/scarring. In setting of prior neoplasm, lymphangitic carcinomatosis would be of consideration although relative stability dating back to 2011 would be atypical. Of note, new airspace disease at this location would likely be undetectable by radiographs. Possible small left pleural effusion, also similar to prior exams. Electronically signed by: Kyle Odell MD 02/15/2020 2:03 Echocardiogram report: Conclusions: 1: Left ventricular ejection fraction estimated by 2D at 55%. 2: Mild concentric left ventricular hypertrophy. 3: Trace mitral valve regurgitation. 4 mild anterior mitral valve leaflet prolapse. 5 mild right atrial enlargement. Of note patient's aortic valve is sclerotic but opens well and there is no aortic valve regurgitation. EKG performed 15 February 2020 at 1204 hrs.: Sinus rhythm with marked sinus arrhythmia at 64 bpm, normal axis deviation, no ST or T wave changes concerning for ischemia, otherwise normal EKG. No comparison EKG available at this time. EXAM: CT CHEST ANGIOGRAPHY WITH IV CONTRAST HISTORY: chest pressure, sob and elevated d dimer COMPARISON: September 04, 2018 TECHNIQUE: Contiguous axial images of the chest were obtained from the thoracic inlet to the level of the upper abdomen after the administration of intravenous contrast followed by reconstruction images. Volume rendering images were performed. This exam was performed according to our departmental dose-optimization program, which includes automated exposure control, adjustment of the mA and/or kV according to patient size and/or use of iterative reconstruction technique. FINDINGS: There has been interval increase in the degree of left pleural thickening and parenchymal opacity at the subpleural level of the mid and lower left hemithorax worrisome for malignancy such as mesothelioma or metastatic disease. Diffuse lymphadenopathy within the mediastinum, left axilla and eric compatible with malignancy. There is mild thickening of the interlobular septi at the left lower lung. Linear and bandlike opacities within the lungs may represent scar versus subsegmental atelectasis. The aorta is of normal contour and tapering. There is atherosclerosis. There is no discrete filling defect within the pulmonary arterial system to suggest pulmonary emboli. There is no pericardial or pleural fluid collection. There is no pneumothorax. Patient is status post cholecystectomy. IMPRESSION: Interval increase in the degree of diffuse left pleural thickening and subpleural opacities worrisome for malignancy. Diffuse lymphadenopathy within the mediastinum, eric and left axilla worrisome for malignancy. No CT evidence of acute pulmonary emboli. Electronically signed by: Yves Elizondo MD 02/15/2020 6:52 PM Vital Signs 02/15/20 02/15/20 02/15/20 11:55 12:00 12:54 Temperature 97.2 F L Pulse Rate [ 63 63 Pulse ox] Respiratory 20 20 Rate Blood Pressure 158/110 [R arm] O2 Sat by Pulse 98 94 L Oximetry 02/15/20 02/15/20 02/15/20 13:00 14:00 15:00 Temperature Pulse Rate [ 64 64 68 Pulse ox] Respiratory 22 14 20 Rate Blood Pressure 138/80 153/86 145/87 [R arm] O2 Sat by Pulse 97 97 97 Oximetry 02/15/20 02/15/20 02/15/20 16:00 17:00 18:37 Temperature Pulse Rate [ 68 66 74 Pulse ox] Respiratory 19 18 16 Rate Blood Pressure 145/87 82/61 164/99 [R arm] O2 Sat by Pulse 97 92 L 98 Oximetry Departure - Departure Clinical Impression: Mass of lung parenchyma, Mediastinal lymphadenopathy Chest pain Qualifiers: Chest pain type: unspecified Qualified Code(s): R07.9 - Chest pain, unspecified Time of Disposition: 19:21 Disposition: Discharge to Home or Self Care Condition: Good Departure Forms: ED Discharge - Pt. Copy, Patient Portal Self Enrollment Instructions: DI for Chest Pain, Chest Pain (DC), Pleural Effusion Diet: resume usual diet Activity: increase activity as tolerated Referrals: Maico Small III, MD [Primary Care Provider] - 1-5 Days Home Medications: Ambulatory Orders Vilazodone HCl [Viibryd] 40 mg PO DAILY 03/14/12 Cyanocobalamin [Vitamin B12] 1,000 mcg PO BID 11/25/19 Levothyroxine Sodium [Euthyrox] 137 mcg PO DAILY 11/25/19 Pramipexole Dihydrochloride [Pramipexole Dihydrochlori] 0.5 mg PO PRN 11/25/19 Tamsulosin [Flomax] 0.4 mg PO QD 11/25/19 Tramadol HCl 50 mg PO PRN 11/25/19 Ondansetron [Ondansetron Odt] 4 mg PO Q6H #12 tab 01/21/20
[2020-02-15 18:37] VITALS: O2SAT 98
--- NOTE | 2020-02-15 18:54 | CT ---
EXAM: CT CHEST ANGIOGRAPHY WITH IV CONTRAST HISTORY: chest pressure, sob and elevated d dimer COMPARISON: September 04, 2018 TECHNIQUE: Contiguous axial images of the chest were obtained from the thoracic inlet to the level of the upper abdomen after the administration of intravenous contrast followed by reconstruction images. Volume rendering images were performed. This exam was performed according to our departmental dose-optimization program, which includes automated exposure control, adjustment of the mA and/or kV according to patient size and/or use of iterative reconstruction technique. FINDINGS: There has been interval increase in the degree of left pleural thickening and parenchymal opacity at the subpleural level of the mid and lower left hemithorax worrisome for malignancy such as mesothelioma or metastatic disease. Diffuse lymphadenopathy within the mediastinum, left axilla and eric compatible with malignancy. There is mild thickening of the interlobular septi at the left lower lung. Linear and bandlike opacities within the lungs may represent scar versus subsegmental atelectasis. The aorta is of normal contour and tapering. There is atherosclerosis. There is no discrete filling defect within the pulmonary arterial system to suggest pulmonary emboli. There is no pericardial or pleural fluid collection. There is no pneumothorax. Patient is status post cholecystectomy. IMPRESSION: Interval increase in the degree of diffuse left pleural thickening and subpleural opacities worrisome for malignancy. Diffuse lymphadenopathy within the mediastinum, eric and left axilla worrisome for malignancy. No CT evidence of acute pulmonary emboli. Electronically signed by: Yves Elizondo MD 02/15/2020 6:52 PM DISABILITY COUNSELOR
[2020-02-15 19:31] VITALS: BP 160/100
== END 2020-02-15 19:32 | disposition home or self-care (01) ==
LOC: ER 11:54
DX: R07.89 Other chest pain (principal); R91.8 Other nonspecific abnormal finding of lung field; R59.0 Localized enlarged lymph nodes; I34.0 Nonrheumatic mitral (valve) insufficiency; I34.1 Nonrheumatic mitral (valve) prolapse; I51.7 Cardiomegaly; I49.9 Cardiac arrhythmia, unspecified; R05 Cough; R06.02 Shortness of breath; E03.9 Hypothyroidism, unspecified; Z95.5 Presence of coronary angioplasty implant and graft; Z90.49 Acquired absence of other specified parts of digestive tract; Z85.828 Personal history of other malignant neoplasm of skin; Z79.899 Other long term (current) drug therapy; Z88.8 Allergy status to other drugs, medicaments and biological substances

== ENCOUNTER 2020-02-26 05:43 | Day surgery (SDC) | payer OTHER ==
[2020-02-26] MEDS ORDERED: LACTATED RINGERS 1,000 ML ONE (06:43)
[2020-02-26] MEDS ORDERED: ceFAZolin SODIUM 1 GM VIAL ONE (06:43)
[2020-02-26] MEDS ORDERED: SODIUM CHL 0.9% 100ML MINI-BAG 100 ML IVPB ONE (06:43)
[2020-02-26] MEDS ORDERED: diphenhydrAMINE HCL 50 MG/ML VIAL ONE (07:00)
[2020-02-26] MEDS ORDERED: LIDOCAINE 1% 10 ML VIAL INJ ONE (07:00)
[2020-02-26] MEDS ORDERED: PROPOFOL 200 MG/20 ML VIAL IV ONE (07:00)
[2020-02-26] MEDS ORDERED: SODIUM BICARBONATE VIAL 50 MEQ/50 ML VIAL ONE (12:48)
[2020-02-26] MEDS ORDERED: LIDOCAINE 1% 50 ML VIAL INJ ONE ×2 (12:48→13:28)
[2020-02-26] MEDS ORDERED: fentaNYL CITRATE INJ 50 MCG/ML 2 ML AMP ONE (13:01)
[2020-02-26] MEDS ORDERED: KETAMINE HCL 100 MG/ML VIAL ONE (13:02)
[2020-02-26] MEDS ORDERED: SODIUM BICARBONATE VIAL 50 MEQ/50 ML VIAL IV ONE (13:28)
--- NOTE | 2020-02-26 14:58 | OP ---
DATE OF PROCEDURE: 02/26/20 PREOPERATIVE DIAGNOSIS: 1. Abnormal left CT scan suspicious for malignancy and left axillary adenopathy. POSTOPERATIVE DIAGNOSIS: 1. Abnormal left CT scan suspicious for malignancy and left axillary adenopathy. PROCEDURE: 1. Excision, deep left axillary lymph node. SURGEON: Robin Hernandez MD. TRAFFIC WAREHOUSE SUPERVISOR: None. ANESTHESIA: Local infiltration of 1% lidocaine with bicarb and IV sedation by Anesthesia. INDICATION: The patient is a 74-year-old male who has had an abnormal CT for some time. It has recently changed and worsened and become quite worrisome for a malignancy. He was brought to the Surgical Suite today for open biopsy of a left axillary lymph node to attempt to make a diagnosis. FINDINGS: The lymph node was identified high up in the axilla. It was sent for pathological evaluation. PROCEDURE: After the patient was brought to the Surgical Suite and placed in supine position, he was prepped and draped in the usual sterile manner. IV sedation was performed by Anesthesia and a surgical time-out was taken. When this was done, a transverse incision was made in the lower axilla, first with a marking pen and then with infiltration of anesthesia. The skin was incised with a skin knife and dissection was carried superiorly using electrocautery and blunt dissection. Eventually, the lymph node was identified by palpation. Dissection was continued higher and more medially. It was identified, isolated with blunt dissection and then clamped. Three different areas of vessels were clamped and divided sharply. The lymph node was sent for pathological evaluation. The vessels were tied with 3-0 Vicryl simple ties. The wound was then irrigated first with lidocaine, then with saline. Hemostasis was noted to be adequate. At this point, the subcutaneous tissues were reapproximated with a single layer of 3-0 simple sutures. When this was done, the skin edges were approximated with 4-0 Nylon vertical mattress sutures. Sterile pressure dressing was applied along with an Rafal wrap. The patient tolerated the procedure well. Estimated blood loss was less than 25 mL. All sponge, needle and instrument counts were correct. #[id number] [facility]
[2020-02-26 15:21] VITALS: BP 156/100; TEMP 97; O2SAT 99
== END 2020-02-26 14:50 | disposition home or self-care (01) ==
LOC: AMB 05:43
PROVIDERS: ATTEND Surgery
DX: R59.0 Localized enlarged lymph nodes (principal); N40.0 Benign prostatic hyperplasia without lower urinary tract symptoms; I50.9 Heart failure, unspecified; E05.00 Thyrotoxicosis with diffuse goiter without thyrotoxic crisis or storm; F32.9 Major depressive disorder, single episode, unspecified; G47.30 Sleep apnea, unspecified; K58.9 Irritable bowel syndrome, unspecified; E55.9 Vitamin D deficiency, unspecified; Z85.820 Personal history of malignant melanoma of skin; Z79.899 Other long term (current) drug therapy
CPT/HCPCS: 01610; 38525; 81001; 88305; 88342; J0690; J1200; J3010; J3490; J7050; J7120

== ENCOUNTER 2020-03-20 11:57 | Emergency (ER) | payer OTHER ==
[2020-03-20] MEDS ORDERED: SODIUM CHLORIDE 0.9% (FLUSH) 10 ML SYG IV PRN (12:07)
[2020-03-20 13:07] VITALS: TEMP 97.3
[2020-03-20] MEDS: SODIUM CHLORIDE 0.9% 1000ML 1,000 ML IVS PRN (13:12)
[2020-03-20] MEDS: MORPHINE SULFATE INJ 10 MG/ML VIAL IV ONE ×2 (13:13→15:19)
[2020-03-20] MEDS: SODIUM CHLORIDE 0.9% 1000ML 1,000 ML IVS ONE (13:14)
--- NOTE | 2020-03-20 13:25 | CT ---
EXAM DESCRIPTION: CT-Head CLINICAL HISTORY: loc /trauma COMPARISON: None available TECHNIQUE: Multiple axial images of the head without contrast. Multiplanar reformatted images. This exam was performed according to our departmental dose-optimization program, which includes automated exposure control, adjustment of the mA and/or kV according to patient size and/or use of iterative reconstruction technique. FINDINGS: There is no CT evidence of intracranial hemorrhage, mass effect, or large territory infarction. Moderate generalized volume loss. Moderate patchy supratentorial white matter hypodensities. There are no abnormal extra-axial fluid collections. Calcific plaque in the visualized arteries. No acute calvarial defect. Left parietal scalp hematoma. Mucosal thickening in the visualized paranasal sinuses. Operative changes of the right ethmoid air cells and maxillary sinus. The mastoid air cells are clear. IMPRESSION: 1. No CT evidence of an acute intracranial abnormality. If there is concern for an acute or subacute infarct, consider follow-up MRI. 2. Left parietal scalp hematoma. 3. Senescent changes. Electronically signed by: Pedrito Soria MD 03/20/2020 1:23 PM [facility]
--- NOTE | 2020-03-20 13:38 | CT ---
EXAM DESCRIPTION: CT ABDOMEN AND PELVIS WITH CONTRAST CLINICAL HISTORY: trauma / pain COMPARISON: December 22, 2018 TECHNIQUE: CT of the abdomen and pelvis are performed during IV bolus administration of nonionic contrast. Oral contrast media was not administered This exam was performed according to our departmental dose-optimization program, which includes automated exposure control, adjustment of the mA and/or kV according to patient size and/or use of iterative reconstruction technique. FINDINGS: The right lung base is essentially clear. Minor scarring or linear atelectasis at the posterior costophrenic angle noted. Left basilar parenchymal inflammatory changes pleural thickening and small amount of pleural fluid evident. Soft tissue thickening and/or nodularity suggesting possible adenopathy involving the posterior mediastinum and aortic hiatus at the base of the lungs should be considered. This is more prominent than previously seen. Fatty replaced liver without cystic or solid mass noted. The gallbladder is surgically absent with no evidence of ductal dilation. Small normal intact spleen with accessory splenule. Atrophic pancreas without cyst or mass. Small normal adrenal glands. Low-density nodular changes below the aortic hiatus in the upper abdominal epigastric retroperitoneum suggesting lymphomatous or less likely metastatic process. Normal cortical enhancement of the kidneys without hydronephrosis or evidence of rupture or perinephric hematoma. Shotty retroperitoneal and periaortic adenopathy likely part of the abnormal adenopathy noted at a higher level. 3.6 cm infrarenal aortic aneurysm, 3 mm larger than previously measured. Two year follow-up examination for reevaluation recommended. Small benign cysts mid and lower pole of the right kidney. Small and large bowel caliber normal without evidence of free abdominal air or abdominal ascites or fluid. No acute inflammatory changes evident. Within the pelvis normally distended bladder and normal-appearing prostate and seminal vesicles. Stool-filled rectum and left colon without evidence of perforation. Tortuous iliac vessels with atherosclerosis without evidence of rupture or hemorrhage. No evidence of pelvic ascites. Normal inguinal region and intact anterior abdominal wall with significant atrophy of the right rectus muscle superiorly. Generalized osteopenia of the bony structures with acute modest impaction of the T12 vertebral body with approximate 20% loss of height and impaction of the superior endplate. Retropulsion of the posterior margin of the vertebral body approximately 1 mm. Intact pedicles and posterior elements. Additional compression deformities not apparent. Fatty hemangiomas involving the anterior L2 and anterior L5 vertebral bodies. No additional compression fractures seen. IMPRESSION: 1. Markedly abnormal left lung base with mixed parenchymal and pleural disease and small effusion slightly worse in appearance than seen December 2018 and felt to represent chronic inflammatory or posttraumatic changes. 2. Low-density adenopathy in the posterior mediastinum and aortic hiatus region extending into the upper abdominal epigastrium, suspicious for a neoplastic or lymphomatous process. Progression since 2018 noted. 3. Fatty replaced liver with surgical absence of the gallbladder. 4. Mild estimated 20% superior endplate T12 compression deformity with approximate 1 mm posteriorly displaced bone from the posterior vertebral margin into the anterior spinal canal. No involvement of the posterior elements or malalignment noted. 5. 3.6 cm infrarenal aortic aneurysm, slightly larger than previously measured two year sonographic follow-up for stability recommended 6. Benign cystic disease right kidney. 7. No evidence of acute intra-abdominal injury or rupture of solid organ or significant hemoperitoneum or ascites noted. Electronically signed by: Saúl Spivey MD 03/20/2020 1:36 PM [facility]
--- NOTE | 2020-03-20 13:45 | CT ---
EXAM DESCRIPTION: Cervical Spine CLINICAL HISTORY: neck pain trauma COMPARISON: None Available. TECHNIQUE: Cervical CT is performed with thin-section axial imaging. MPRs are created and reviewed as well. This exam was performed according to our departmental dose-optimization program, which includes automated exposure control, adjustment of the mA and/or kV according to patient size and/or use of iterative reconstruction technique. FINDINGS: Straightening of the cervical spine is present with multilevel degenerative disc disease and prior mature ACDF at the C5-6 level with bony fusion of the disc space with disc graft material in place. Anterior plating is satisfactorily positioned. Advanced hypertrophic degenerative joint disease anteriorly at the C1-2 articulation is present with no evidence of cranial cervical injury or fracture of the ring of C1 or the odontoid. Degenerative disc narrowing and disc calcification at C2-3 with normal alignment. Diffuse facet joints bilaterally at C2-3 with advanced left-sided hypertrophic facet degenerative disease at C3-4 with more normal appearance on the right at this level. Normal alignment at the C4-5 level with moderate facet arthropathy on the right and normal facet joint on the left. No fracture or deformity evident. ACDF and anterior interbody fusion C5-6 and anatomic alignment with essentially normal facet joints and posterior elements. Mild disc narrowing and anterior spurring C3 6-7 in anatomic alignment with essentially normal facet joints and neural foramina. The C7-T1 level and upper thoracic spine is unremarkable. No spinous process fractures or abnormal subluxation noted. IMPRESSION: 1. No evidence of acute cervical spine injury or fracture or malalignment. 2. ACDF at the C5-6 level with mature anterior interbody fusion and disc graft material in anatomic alignment. 3. Multilevel degenerative disc disease including C2-3 and C6-7 with fused facet joints at the C2-3 level bilaterally and asymmetric degenerative changes as described above. 4. No pedicle or laminar or posterior element fracture identified. 5. Incidental note mild scarring in the left pulmonary apex of uncertain significance a small focus of infiltrate cannot be excluded. Electronically signed by: Saúl Spivey MD 03/20/2020 1:43 PM [employer]
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
[2020-03-20] MEDS: KETOROLAC TROMETHAMINE INJ 30 MG/ML VIAL IV ONE (15:38)
[2020-03-20 16:47] VITALS: BP 114/72; O2SAT 98
== END 2020-03-20 16:38 | disposition home or self-care (01) ==
LOC: ER 11:57
DX: S22.080A Wedge compression fracture of T11-T12 vertebra, initial encounter for closed fracture (principal); S16.1XXA Strain of muscle, fascia and tendon at neck level, initial encounter; S00.03XA Contusion of scalp, initial encounter; I71.4 Abdominal aortic aneurysm, without rupture; R91.1 Solitary pulmonary nodule; J44.9 Chronic obstructive pulmonary disease, unspecified; R55 Syncope and collapse; I51.9 Heart disease, unspecified; Z87.891 Personal history of nicotine dependence; Z79.899 Other long term (current) drug therapy; V49.88XA Car occupant (driver) (passenger) injured in other specified transport accidents, initial encounter; Y92.410 Unspecified street and highway as the place of occurrence of the external cause
CPT/HCPCS: 36415; 70450; 71260; 72125; 74177; 80048; 80076; 80320; 85025; 85610; 85730; 93005; 94760; 96374; 96376; 99284; J1885; J2270; J7030

== ENCOUNTER → 2020-03-24 | Outpatient (CLI) | payer OTHER ==
--- NOTE | 2020-03-25 07:11 | RAD ---
Study: Frontal and Lateral Radiographs of the Chest. Indication: COUGH Comparison: February 14, 2001 a Impression: Moderately Tete. Persistent consolidative changes inferior two thirds left lung and inferior third right lung. Changes slightly progressed and remain concerning for pneumonia. Tiny left pleural effusion suspected. No pneumothorax. Electronically signed by: Andrés Hobson MD 03/25/2020 7:10 AM [facility]
== END ==
LOC: RAD 14:01
PROVIDERS: ATTEND Nurse Practitioner Family
DX: R05 Cough (principal); R91.8 Other nonspecific abnormal finding of lung field

== ENCOUNTER → 2020-03-27 | Outpatient (CLI) | payer OTHER | LOC: GMAL 17:41 | PROVIDERS: ATTEND Family Medicine | DX: N39.0 Urinary tract infection, site not specified (principal) ==

== ENCOUNTER → 2020-04-10 | Outpatient (CLI) | payer OTHER ==
--- NOTE | 2020-04-11 12:35 | RAD ---
EXAM DESCRIPTION: Thoracic Spine,AP Lateral CLINICAL HISTORY: 74 years Male, late effect of fracture of thoracic vertebra COMPARISON: March 20, 2020 Findings: Two view(s)/radiograph(s) The upper thoracic spine is not included. 12 rib-bearing vertebral bodies. T12 superior endplate compression fracture with greater than 75% height loss anteriorly. No other fracture identified. No acute subluxation. Multilevel thoracic spondylosis. Left pleural effusion with adjacent airspace disease. IMPRESSION: T12 superior endplate compression fracture with greater than 75% height loss. Electronically signed by: Aashish Walsh MD 04/11/2020 12:33 PM [facility]
== END ==
LOC: RAD 15:25
PROVIDERS: ATTEND Neurological Surgery
DX: S22.009S Unspecified fracture of unspecified thoracic vertebra, sequela (principal)

== ENCOUNTER → 2020-04-14 | Outpatient (CLI) | payer OTHER ==
--- NOTE | 2020-04-15 15:14 | MRI ---
EXAM DESCRIPTION: Cervical Spine: MRI. CLINICAL HISTORY: 74 years Male LATE EFFECT OF FX COMPARISON: MRI scan cervical spine without contrast May 2019. Prior ACDF. TECHNIQUE: Multiplanar, high-field MRI, multiple sequences, non-contrast Cervical spine. FINDINGS: C5-C6: ACDF visualized with essentially complete interbody osseous fusion. No abnormal soft tissue signal around the hardware. Normal marrow signal around the hardware taking into account artifact. Minimal thickening of the posterior flavum ligaments. Minimal canal narrowing at the level of the disc space. Bilateral neural foraminal narrowing but no stenosis. Bilateral facet joints unremarkable. No interval change from the prior study. C6-C7: Disc desiccation and minimal posterior bulging. Posterior midline hyperintense T2 weighted annular fissure in the disc margin abutting the cord. Thickening of the posterior flavum ligaments. [id number] canal narrowing. Mild narrowing of the left neural foramen with right neuroforamen patent. Minimal hypertrophic changes in the left facet joint. Stable since the prior study. C3-C4: Minimal disc desiccation with disc space preserved. Posterior midline bulge of the disc abutting the cord. Thickening of the posterior spinal ligaments with borderline mild canal stenosis. Bilateral uncinate spurs. Hypertrophic facet arthrosis more left than right. Moderate left neural foraminal stenosis and mild right neural foraminal stenosis. No change from the prior study. C4-C5: Disc desiccation with disc space maintained. Right uncinate spur. Hypertrophic changes in the right facet joint. Borderline mild neural foraminal stenosis. This has progressed since the prior study. Canal and Left neuroforamen are patent. Left facet joint unremarkable. Normal signal in the C2-C3 disc with no bulging. Disc spaces preserved. Canal and neural foramina are patent. Facet joints unremarkable. Spinal alignment negative. No cord compression or cord edema. Atlantoaxial joint is unremarkable.. Base of the cerebellar tonsils is minimally above the foramen magnum. Paravertebral soft tissues negative. Vertebral bodies are not compressed at any level. Otherwise normal marrow signal in the remaining vertebral bodies and the posterior elements. IMPRESSION: 1. Multilevel disc desiccation. Hypertrophy of the posterior femoral ligaments at several levels. 2. Right uncinate spurring at C4-C5 and hypertrophic changes in the right facet joint resulting in borderline mild neural foraminal stenosis which has progressed since the prior study. 3. ACDF at C5-C6 with no complications. Mild canal and bilateral neural foraminal narrowing with no stenosis. 4. Please refer to FINDINGS for discussion of results at other disc space levels. Electronically signed by: Kumar Hernandez MD 04/15/2020 3:13 PM [facility]
--- NOTE | 2020-04-15 16:05 | MRI ---
EXAM DESCRIPTION: Lumbar Spine w/o Contrast : Magnetic Resonance Imaging. CLINICAL HISTORY: LATE EFFECT OF FX COMPARISON: MRI scan of the thoracic spine April 10. MRI scan of the lumbar spine February 2013. TECHNIQUE: Multiplanar, multiple standard sequences, non contrast MRI, lumbar spine. FINDINGS: L5-S1: The disc is well visualized on axial T2 series 501, image 3. Minimal disc desiccation with disc space maintained. Posterior hyperintense T2 annular fissure to the right of midline abutting the descending right S1 nerve. Partial right L5 laminectomy. Posterior left flavum ligaments and facet joints are unremarkable. AP canal diameter 13 mm. Mild narrowing of the left foramen and [id number] narrowing of the right foramen. No interval change from the prior study. T12 vertebral body: Compression deformity mostly central with less compression of the anterior aspect. Least amount of compression posteriorly. Not seen on the prior study. Central vertebral body height 8 mm and central L1 vertebral body height 2.5 mm. Retropulsion inferior to the superior endplate 3.3 mm. Not abutting the cord. Marrow edema in the bilateral vertebral body also involving the pedicles bilaterally. No marrow edema in the transverse processes, lamina, or posterior spinous process. Minimal marrow edema in the inferior left facet. No posterior soft tissue edema, but minimal paravertebral soft tissue edema, especially anterior. This is anterior to bony displacement from the superior endplate to the soft tissue anterior to the T11-T12 disc space. T11-T12: Disc desiccation. Disc space expanding into the concave surface of T12 vertebral body. No posterior bulging. Covered anterior by displaced bone from the T12 vertebral body. Bilateral canal and foramina are narrowed. T12-L1: Minimal disc desiccation with central disc extending superiorly into the concavity of the T12 vertebral body fracture. Posterior Disc space narrowed. No anterior posterior bulging. Canal elements are unremarkable. Canal and foramina are patent. L4-L5: Disc desiccation with minimal disc space loss. Posterior midline bulge stable. Partial right L5 laminectomy. Hypertrophic changes in the canal elements except for excision of the right flavum ligament with partial laminectomy. AP canal diameter 12 mm. Moderate narrowing of the left foramen. Borderline right foraminal stenosis, which has progressed since the prior study. L3-L4: Disc desiccation with no posterior bulging. Hypertrophic changes of the canal elements. AP canal diameter 11 mm. Bilateral moderate to severe foraminal narrowing worse on the left. This has progressed since the prior study. L2-L3: Disc desiccation with disc space maintained. Mild hypertrophic changes in the canal elements. AP canal diameter 14 mm. Bilateral mild to moderate foraminal narrowing. Stable since the prior study. L1-L2: Normal signal in the disc with disc space maintained. No bulging. Minimal hypertrophic changes in the canal elements. Mild and moderate bilateral foraminal narrowing with canal patent. No scoliosis. Paravertebral soft tissues negative except as described above.. Distal cord normal signal and caliber. Otherwise normal marrow signal in the remaining vertebral bodies and the posterior elements. Vertebral bodies are not compressed at any level. IMPRESSION: 1. Subacute compression type vertebral body fracture T12 vertebral body with 60-70% loss of height centrally. Marrow edema in the bilateral pedicles and the left inferior facet, but otherwise posterior elements are preserved. Retropulsion posteriorly narrowing the canal but not impinging the cord. No canal stenosis. No foraminal stenosis T11-T12 or T12-L1. 2. Borderline right foraminal stenosis due to multiple factors at L4-L5 which has progressed since the prior study. 3. Bilateral moderate to severe foraminal narrowing at L3-L4, worse on the left. This has progressed since the prior study. 4. Please refer to FINDINGS for discussion of results at other disc space levels. Electronically signed by: Kumar Hernandez MD 04/15/2020 4:03 PM [facility]
== END ==
LOC: MRI 12:56
PROVIDERS: ATTEND Neurological Surgery
DX: S22.000S Wedge compression fracture of unspecified thoracic vertebra, sequela (principal); R59.0 Localized enlarged lymph nodes; M48.061 Spinal stenosis, lumbar region without neurogenic claudication; M51.36 Other intervertebral disc degeneration, lumbar region; M51.86 Other intervertebral disc disorders, lumbar region; M51.35 Other intervertebral disc degeneration, thoracolumbar region